=== PATIENT | female | born 1950 | race Caucasian/White ===

== ENCOUNTER 2020-03-22 17:47 | Outpatient (CLI) | payer MEDICARE, SELFPAY ==
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
--- NOTE | ~2020-03-22 | MR_ITS ---
EXAMINATION: MR cervical spine wo con DATE: 03/22/2020 18:34 INDICATION: Cervical radiculopathy. TECHNIQUE: Magnetic resonance imaging (MRI) of the cervical spine was performed without intravenous c ontrast. Sequences included sagittal T2-weighted FSE, sagittal STIR FSE, sagittal T1-weighted FSE, ax ial MERGE, and axial T2-weighted FSE. COMPARISON: Cervical spine radiographs 04/14/2020, chest CT 05/09/2012 FINDINGS: There is 3 degrees dextrocurvature of cervical spine. There is kyphosis of cervical spine. There is 2 mm anterolisthesis of C3 on C4 and C4 on C5. Vertebral body heights are normal. There is m ildly decreased disc height at C4-C5 and moderately decreased disc height at C5-C6 and C6-C7. The spi nal cord signal intensity is normal. The following disc levels are specifically discussed: C2-C3: The disc does not extend beyond the endplate margin. There is mild bilateral uncovertebral harsh nt osteoarthritis. There is severe right and moderate left facet joint osteoarthritis. There is mild right neural foraminal stenosis. There is no central canal stenosis. C3-C4: The disc does not extend beyond the endplate margin. There is mild right and moderate left unc overtebral joint osteoarthritis. There is moderate right and severe left facet joint osteoarthritis. There is mild right and moderate left neural foraminal stenosis. There is mild central canal stenosis . C4-C5: The disc does not extend beyond the endplate margin. There is mild bilateral uncovertebral harsh nt osteoarthritis. There is moderate bilateral facet joint osteoarthritis. There is no neural foramin al stenosis. There is mild central canal stenosis. C5-C6: The disc is bulging. There is severe bilateral uncovertebral joint osteoarthritis. There is mo derate bilateral facet joint osteoarthritis. There is mild bilateral neural foraminal stenosis. There is mild central canal stenosis. C6-C7: The disc is bulging. There is moderate right and severe left uncovertebral joint osteoarthriti s. There is mild bilateral facet joint osteoarthritis. There is mild bilateral neural foraminal steno sis. There is mild central canal stenosis. C7-T1: The disc does not extend beyond the endplate margin. There is no uncovertebral joint osteoarth ritis. There is moderate right and severe left facet joint osteoarthritis. There is mild left neural foraminal stenosis. There is no central canal stenosis. IMPRESSION: 1. Moderate cervical spondylosis. Reviewed, dictated and finalized at location A.
== END 2020-03-22 17:48 | disposition home or self-care (01) ==
LOC: ANHIMG 17:57
PROVIDERS: PCP Physician Assistant; Visit Provider Nurse Practitioner Adult Health
DX: M47.22 Other spondylosis with radiculopathy, cervical region (principal)
CPT/HCPCS: 72052; 72141

== ENCOUNTER → 2021-03-26 09:16 | Outpatient (CLI) | payer MEDICARE, SELFPAY ==
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
--- NOTE | ~2021-03-26 | MR_ITS ---
EXAMINATION: MR cervical spine wo con DATE: 03/26/2021 10:01 INDICATION: Cervical radiculopathy. TECHNIQUE: Magnetic resonance imaging (MRI) of the cervical spine was performed without intravenous c ontrast. Sequences included sagittal T2-weighted FSE, sagittal STIR FSE, sagittal T1-weighted FSE, ax ial MERGE, and axial T2-weighted FSE. COMPARISON: Cervical spine MRI 03/22/2020 FINDINGS: There is kyphosis of cervical spine. There is 2 mm anterolisthesis of C3 on C4 and C4 on C5 . Vertebral body heights are normal. There are hemangiomas in T2 and T3 vertebral bodies. There is mo derately decreased disc height at C5-C6 and mildly decreased disc height at C6-C7. The spinal cord si gnal intensity is normal. The following disc levels are specifically discussed: C2-C3: The disc does not extend beyond the endplate margin. There is no uncovertebral joint osteoarth ritis. There is severe bilateral facet joint osteoarthritis. There is mild bilateral neural foraminal stenosis. There is no central canal stenosis. C3-C4: The disc does not extend beyond the endplate margin. There is mild right and moderate left unc overtebral joint osteoarthritis. There is severe bilateral facet joint osteoarthritis. There is mild right and moderate left neural foraminal stenosis. There is no central canal stenosis. C4-C5: The disc does not extend beyond the endplate margin. There is mild bilateral uncovertebral harsh nt osteoarthritis. There is severe bilateral facet joint osteoarthritis. There is mild bilateral neur al foraminal stenosis. There is no central canal stenosis. C5-C6: The disc is bulging. There is severe bilateral uncovertebral joint osteoarthritis. There is mo derate bilateral facet joint osteoarthritis. There is mild bilateral neural foraminal stenosis. There is mild central canal stenosis with ventral indentation of the spinal cord. C6-C7: The disc is bulging. There is severe bilateral uncovertebral joint osteoarthritis. There is se adelaide bilateral facet joint osteoarthritis. There is mild left neural foraminal stenosis. There is mil d central canal stenosis. C7-T1: The disc does not extend beyond the endplate margin. There is no uncovertebral joint osteoarth ritis. There is moderate bilateral facet joint osteoarthritis. There is mild left neural foraminal st enosis. There is no central canal stenosis. IMPRESSION: 1. Moderate cervical spondylosis, stable from 03/22/2020. Reviewed, dictated and finalized at location A.
== END ==
PROVIDERS: Visit Provider Nurse Practitioner Adult Health
DX: M47.23 Other spondylosis with radiculopathy, cervicothoracic region (principal); M48.03 Spinal stenosis, cervicothoracic region; M19.011 Primary osteoarthritis, right shoulder
CPT/HCPCS: 72141; 73030

== ENCOUNTER 2021-05-08 15:41 | Outpatient (CLI) | payer MEDICARE, SELFPAY ==
--- NOTE | ~2021-05-08 | CT_ITS ---
EXAMINATION: CT abdomen pelvis w con EXAM DATE: 05/08/2021 16:28 INDICATION: Persistent right flank pain and abdominal pain. Reportedly negative CT in the emergency r oom on 05/02/2021. TECHNIQUE: Spiral CT of the abdomen and pelvis was performed following intravenous injection of 100 m L Omnipaque 350. Axial, coronal and sagittal images of the abdomen and pelvis were reviewed. The do se-length product (DLP) for this examination was 1264.41 mGy-cm. The exposure was tailored according to patient size (auto mA exposure control), and iterative reconstruction (ASIR) was used as addition al dose reduction technique. There is no prior study for comparison (recent CT must have been at out side facility). FINDINGS: The liver, spleen, adrenal glands and pancreas are unremarkable. Gallbladder is unremarka ble. No biliary obstruction. Portal and splenic veins are patent. Kidneys enhance symmetrically. There is no hydronephrosis. The uterus is not identified and has likely been surgically resected. T here is small sliding gastroesophageal hiatal hernia. The bladder is unremarkable. There is no retr operitoneal or pelvic lymphadenopathy. There is mild scattered arteriosclerotic disease. The appendix is not positively visualized. There is no pericecal inflammatory change to suggest appe ndicitis. There is mild sigmoid colonic diverticulosis. There is no adjacent inflammatory change to suggest diverticulitis. The stomach and small bowel are unremarkable. There is expected amount of colonic stool. No free intraperitoneal gas. The heart is normal in size. There are no pericardia l or pleural effusions. The lung bases are unremarkable. There are no osteoblastic or osteolytic le sions identified. IMPRESSION: 1. No acute intra-abdominal findings. Reviewed, dictated and finalized at location A.
[2021-05-08 16:19] LABS: Estimated Glomerular Filt Rate > 60
== END 2021-05-08 15:42 | disposition home or self-care (01) ==
LOC: ANHIMG 15:44
PROVIDERS: PCP Family Medicine; Visit Provider Family Medicine
DX: R10.9 Unspecified abdominal pain (principal)
CPT/HCPCS: 74177; Q9967

== ENCOUNTER 2021-05-17 07:34 | Outpatient (CLI) | payer MEDICARE, SELFPAY ==
--- NOTE | ~2021-05-17 | NM_ITS ---
EXAMINATION: NM hepatobiliary w pharm DATE: 05/17/2021 10:10 INDICATION: Right upper quadrant abdominal pain. COMPARISON: None. TECHNIQUE: 5 mCi Tc-99m mebrofenin (Choletec) was administered intravenously. Scintigraphic images o f the abdomen were obtained for one hour. 1.0 mcg sincalide (Kinevac) was administered by slow intrav enous infusion, and imaging was continued for 30 minutes. Gallbladder ejection fraction was calculate d by the technologist. FINDINGS: There is normal clearance of radiotracer from the blood pool. There is homogeneous tracer uptake by t he liver. Activity progresses to the gallbladder and bowel. The gallbladder ejection fraction (GBEF) is 97% (normal 10-90%, but most patient with gallbladder dysfunction have GBEF < 35% which does over lap with the normal range). IMPRESSION: 1. Biliary hyperkinesis with increased gallbladder ejection fraction of 97%. Reviewed, dictated and finalized at location A.
== END 2021-05-17 07:35 | disposition home or self-care (01) ==
PROVIDERS: PCP Family Medicine; Visit Provider Nurse Practitioner Family
DX: R10.11 Right upper quadrant pain (principal)
CPT/HCPCS: 78227; A9537; J2805

== ENCOUNTER 2023-02-12 09:21 | Outpatient (CLI) | payer MEDICARE, SELFPAY ==
--- NOTE | ~2023-02-12 | XR_ITS ---
EXAMINATION: XR lg joint inject/asp w image DATE: 02/12/2023 10:10 INDICATION: Right shoulder pain. TECHNIQUE: A time-out was performed to verify the patient's name, date of , and procedure to b e performed. The procedure including the risks, benefits, and alternatives was discussed with the pat ient. Risks discussed included bleeding and infection. The patient understood the risks and agreed to proceed. The skin overlying the rotator cuff interval of the right glenohumeral joint was prepped a nd draped in usual sterile fashion. Anesthetic was administered with 1% lidocaine subcutaneously. A 22 G needle was advanced under fluoroscopic guidance into the joint. Injection of a small amount of room air confirmed intra-articular position of the needle. Subsequently, injectate consisting of 2 m L 1% lidocaine and 1.5 mL of 10 mg/mL Kenalog for a total dosage of 15 mg Kenalog was instilled. The needle was removed and the entry site was cleaned and dressed. There were no immediate complications . Fluoroscopy exposure time was 2.1 minutes. The total number of images was 1. FINDINGS: Real-time fluoroscopy demonstrates the needle and injected gas in the right glenohumeral prince int. Patient's pain prior to procedure:5/10. Patient's pain following the procedure: 0/10. IMPRESSION: 1. Successful right glenohumeral joint injection of local anesthetic and steroid with decrease in the patient's presenting pain. Reviewed, dictated and finalized at location A. IMPRESSION: 1. Successful right glenohumeral joint injection of local anesthetic and steroi d with decrease in the patient's presenting pain.
== END 2023-02-12 09:22 | disposition home or self-care (01) ==
LOC: ANHIMG 09:25
PROVIDERS: PCP Family Medicine; Visit Provider Nurse Practitioner
DX: M25.511 Pain in right shoulder (principal); G89.29 Other chronic pain
CPT/HCPCS: 20610; 77002; J3301

== ENCOUNTER 2024-02-01 01:58 | Emergency (ER) | payer MEDICARE, SELFPAY ==
--- NOTE | ~2024-02-01 | CT_ITS ---
Non-contrast Head CT History: Trauma Technique: Axial non-contrast imaging of the brain was performed. Dose reduction technique was used on this scan by utilizing automated exposure control and iterative reconstruction technique. The dose -length product (DLP) was 756.67 mGy-cm. Findings: There is no evidence of intracranial hemorrhage, mass lesion, or acute infarct. Brain par enchyma appears normal. The ventricles and subarachnoid spaces are normal in size. The calvarium ap pears normal. There is right maxillary sinus disease. The remaining visualized paranasal sinuses and mastoid air cells are clear. Impression: No intracranial abnormality seen. Right maxillary sinus disease. Reviewed, dictated and finalized at location . Impression: No intracranial abnormality seen. Right maxillary sinus disease.
--- NOTE | ~2024-02-01 | CT_ITS ---
Noncontrast CT scan of the cervical spine Technique: Multiple contiguous axial [address] images of the cervical spine were obtained and rec onstructed in 2D sagittal and coronal planes on the acquisition scanner. Dose reduction technique was used on this scan by utilizing automated exposure control, adjustment of the mA and/or kV according to patient size. The dose-length product (DLP) was 371.46 mGy-cm. Clinical History: Pain Findings: No acute fracture. There is reversal of the normal cervical lordosis. There is 3 mm anterol isthesis of C3 over C4. There is 3 mm anterolisthesis of C4 over C5. There is advanced degenerative d isc narrowing at C5-C6 and C6-C7. There is severe degenerative change at the articulation of the odon toid process and the anterior arch of C1. There is scattered facet joint degenerative changes. There is left neural foraminal narrowing at C3-C4. No prevertebral soft tissue swelling. Impression: No fracture. 3 mm anterolisthesis of C3 over C4, and of C4 over C5. Degenerative spondylitic change, as above. Reviewed, dictated and finalized at location M. Impression: No fracture. 3 mm anterolisthesis of C3 over C4, and of C4 over C5. Degenerative spondylitic change, as above.
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
--- NOTE | ~2024-02-01 | XR_ITS ---
Right wrist Technique: PA, oblique, lateral, and ulnar deviation views were obtained. Clinical History: Pain Findings: There is a transverse fracture the distal radius, with mild displacement. No definite intra -articular extension. There is a mildly displaced acute fracture of the ulnar styloid process. Joint spaces are preserved. Soft tissues are unremarkable. Impression: Acute transverse fractures of the distal radius and ulnar styloid process, as detailed above. Reviewed, dictated and finalized at location M. Impression: Acute transverse fractures of the distal radius and ulnar styloid process, as d etailed above.
[2024-02-01 01:59] VITALS: BP 125/91; PULSE 80; RESP 21; TEMP 36.3; O2SAT 100
[2024-02-01] MEDS: MORPHINE SULFATE (*CRX) 4 MG/ML INJ IV PUSH (02:25)
[2024-02-01] MEDS: ONDANSETRON INJ 4 MG/2 ML VIAL IV PUSH (02:31)
[2024-02-01 02:37] LABS: Basophils Absolute Auto 0.1 K/mm3 (0.0-0.1); Basophils Percent Auto 0.9 % (0.2-1.2); Eosinophils Absolute Auto 0.1 K/mm3 (0-0.3); Hematocrit 38.6 % (37.0-47.0); Hemoglobin 13.1 g/dL (12.0-15.0); Immature Granulocyte Absolute 0.01 K/mm3 (0.00-0.031); Immature Granulocyte Percent A 0.1 % (0-0.5); Lymphocytes Absolute Auto 1.75 K/mm3 (0.9-3.2); Lymphocytes Percent Auto 24.9 % (18.3-44.2); Mean Corpuscular HGB Conc 33.9 g/dl (32-36); Mean Corpuscular Hemoglobin 28.9 pg (26-34); Mean Corpuscular Volume 85.2 fl (80-100); Mean Platelet Volume 10.1 fl (7.4-10.4); Monocytes Absolute Auto 0.4 K/mm3 (0.1-0.6); Neutrophils Absolute Auto 4.7 K/mm3 (1.3-6.7); Neutrophils Percent Auto 66.1 % (45.5-73.1); Platelet Count Result 193 k/mm3 (150-375); Red Blood Count 4.53 M/mm3 (4.2-5.4); Red Cell Distribution Width 13.1 % (11.5-14.5)
--- NOTE | 2024-02-01 02:37 | ED.GENADULT ---
HPI - General Adult General Chief complaint: Fall Stated complaint: Fall tripped over dog Time Seen by Provider: 02/01/24 02:09 History of Present Illness HPI narrative: Patient 73-year-old female presents emergency department chief complaint of right wrist pain. Patient reports that she tripped over her dog fell struck her face and also has pain in her right wrist. The patient states that she has history of arthritis reports that she has pain with movement of the right wrist. Patient states that it hurts with any range of motion of the hand Related Data Allergies Allergy/AdvReac Type Severity Reaction Status Date / Time metformin Allergy Unknown Confusion, Verified 02/01/24 02:14 anxiety Review of Systems Review of Systems: A 10 system review of systems was completed on the patient and is negative except for what is stated in the HPI. Nursing and ancillary documentation was reviewed. [facility] Past Medical History Medical History Acute abdominal pain in right flank (~04/27/21) Allergies Arthritis of right shoulder region glenohumeral Asthma At moderate risk for fall (~12/2023) patient tripped over branch in yd December, Body mass index [BMI] 38.0-38.9, adult (07/19/19) Carpal tunnel syndrome on both sides mild carpal tunnel syndrome on EMG and nerve conduction study 04/09/2021 with no evidence of cervical radiculitis Chronic anxiety Chronic depression Chronic neck pain Chronic pain in right shoulder Chronic right-sided thoracic back pain Colon cancer screening patient reports Cologuard screening negative around 2019. Controlled diabetes mellitus with hyperglycemia Fasting glucose 266 with hemoglobin A1c 9.9 with urine microalbumin ratio of 12 on 01/14/2024. 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 GGT 20, AST 18, ALT 13 on 12/02/2021. AST 19, ALT 14 on 12/05/2022. AST 20, ALT 15 on 01/14/2024. GERD (gastroesophageal reflux disease) Hyperlipidemia Mild intermittent occasional asthma without complication Mixed hyperlipidemia total cholesterol 247, triglycerides 279, HDL 50, LDL 151 on 12/02/2021. Total cholesterol 162, triglycerides 148, HDL 56, LDL 81 on 12/05/2022. Cholesterol 183, HDL 48, triglycerides 253, LDL 99 with ratio 3.8 on 01/14/2024. Morbid obesity with BMI of 40.0-44.9, adult Nail fungus Obesity (BMI 30-39.9) RUQ abdominal pain Screening for diabetic retinopathy no diabetic retinopathy on dilated eye exam 11/26/2021.No retinopathy or macular degeneration on 01/07/2023. Type 2 diabetes mellitus without complication, without long-term current use of insulin glucose 172 with hemoglobin A1c 7.4, microalbumin ratio of 8 on 12/02/2021 Glucose 147 with hemoglobin A1c 7.4 and urine microalbumin ratio of 6 on 12/05/2022. Glucose 220 with hemoglobin A1c 8.5 on 07/03/2023. Vitamin B12 deficiency anemia B12 low at 336 with goal greater than 400 with hemoglobin 13.4 on 12/02/2021. Normal at 445 with hemoglobin 13.2 on 12/05/2022. Slightly low at 395 hemoglobin 13.8 on 01/14/2024. Vitamin D deficiency, unspecified vitamin-D normal at 58 on 12/02/2021 Surgical History Surgical History History of carpal tunnel surgery of right wrist History of hysterectomy History of removal of skin mole History of tonsillectomy Family History Family History Grandparent Family history of tuberculosis, Onset Age: 42 Acute myocardial infarction, Onset Age: 79 Family history of malignant neoplasm, Onset Age: 90 Sibling Patient's brother is in good health Patient's brother is Mother Family history
[2024-02-01 02:44] LABS: Alanine Aminotransferase 19 U/L (6-35); Albumin Level 4.3 g/dL (3.5-5.1); Alkaline Phosphatase 90 U/L (38-126); Anion Gap 9 mmol/L (4-12); Aspartate Amino Transferase 26 U/L (14-36); Bilirubin,Total 0.8 mg/dL (0.2-1.3); Blood Urea Nitrogen 18 mg/dL (7-17); Calcium 9.8 mg/dL (8.4-10.2); Carbon Dioxide 25 mmol/L (22-30); Chloride 100 mmol/L (98-107); Estimated CRCL calculation 61 ml/min; Estimated Glomerular Filt Rate > 60; Glucose 287 mg/dL (65-110); Potassium 3.4 mmol/L (3.4-5.0); Sodium 134 mmol/L (137-145)
[2024-02-01 03:47] VITALS: BP 121/71; PULSE 70; RESP 17; O2SAT 94
[2024-02-01 05:37] VITALS: BP 127/74; PULSE 74; RESP 16; O2SAT 97
[2024-02-01 06:24] VITALS: BP 116/66; PULSE 79; RESP 16; O2SAT 98
== END 2024-02-01 06:27 | disposition home or self-care (01) ==
PROVIDERS: Emergency Provider Emergency Medicine; PCP Family Medicine
DX: S52.591A Other fractures of lower end of right radius, initial encounter for closed fracture (principal); S52.611A Displaced fracture of right ulna styloid process, initial encounter for closed fracture; S05.12XA Contusion of eyeball and orbital tissues, left eye, initial encounter; I10 Essential (primary) hypertension; J45.20 Mild intermittent asthma, uncomplicated; E11.42 Type 2 diabetes mellitus with diabetic polyneuropathy; E78.2 Mixed hyperlipidemia; E66.01 Morbid (severe) obesity due to excess calories; Z68.37 Body mass index [BMI] 37.0-37.9, adult; E55.9 Vitamin D deficiency, unspecified; D51.9 Vitamin B12 deficiency anemia, unspecified; K21.9 Gastro-esophageal reflux disease without esophagitis; M19.011 Primary osteoarthritis, right shoulder; Z90.710 Acquired absence of both cervix and uterus; M43.12 Spondylolisthesis, cervical region; J32.0 Chronic maxillary sinusitis; W01.0XXA Fall on same level from slipping, tripping and stumbling without subsequent striking against object, initial encounter
CPT/HCPCS: 29125; 36415; 70450; 70486; 72125; 73110; 80053; 85025; 96374; 96375; 99284; A4565; J2270; J2405

== ENCOUNTER 2024-02-02 12:30 | Outpatient (CLI) | payer MEDICARE, SELFPAY ==
[2024-02-02 13:01] LABS: Basophils Absolute Auto 0.1 K/mm3 (0.0-0.1); Basophils Percent Auto 1.1 % (0.2-1.2); Eosinophils Absolute Auto 0.1 K/mm3 (0-0.3); Eosinophils Percent Auto 2.1 % (0-4.4); Hematocrit 39.3 % (37.0-47.0); Hemoglobin 12.9 g/dL (12.0-15.0); Immature Granulocyte Absolute 0.01 K/mm3 (0.00-0.031); Immature Granulocyte Percent A 0.2 % (0-0.5); Lymphocytes Absolute Auto 1.44 K/mm3 (0.9-3.2); Mean Corpuscular HGB Conc 32.8 g/dl (32-36); Mean Corpuscular Hemoglobin 28.9 pg (26-34); Mean Corpuscular Volume 88.1 fl (80-100); Mean Platelet Volume 10.3 fl (7.4-10.4); Monocytes Absolute Auto 0.5 K/mm3 (0.1-0.6); Monocytes Percent Auto 7.9 % (2.6-8.5); Neutrophils Absolute Auto 4.4 K/mm3 (1.3-6.7); Neutrophils Percent Auto 66.7 % (45.5-73.1); Platelet Count Result 184 k/mm3 (150-375); Red Blood Count 4.46 M/mm3 (4.2-5.4); Red Cell Distribution Width 13.2 % (11.5-14.5); White Blood Count 6.6 K/mm3 (4.5-10.0)
--- NOTE | 2024-02-02 13:09 | ECG_ITS ---
Measurements Intervals [place] Rate: 85 P: 35 ND: 133 QRS: 41 QRSD: 84 T: 11 QT: 371 QTc: 413 Interpretive Statements SINUS RHYTHM NORMAL ECG SEE SCANNED COPY FOR SIGNATURE MTDD
[2024-02-02 13:18] LABS: Anion Gap 8 mmol/L (4-12); Blood Urea Nitrogen 17 mg/dL (7-17); Calcium 9.4 mg/dL (8.4-10.2); Carbon Dioxide 27 mmol/L (22-30); Chloride 103 mmol/L (98-107); Estimated Glomerular Filt Rate > 60; Glucose 171 mg/dL (65-110); Potassium 3.9 mmol/L (3.4-5.0); Sodium 138 mmol/L (137-145)
== END 2024-02-02 12:31 | disposition home or self-care (01) ==
PROVIDERS: PCP Family Medicine; Visit Provider Orthopaedic Surgery
DX: I10 Essential (primary) hypertension (principal); E11.9 Type 2 diabetes mellitus without complications; S52.509A Unspecified fracture of the lower end of unspecified radius, initial encounter for closed fracture
CPT/HCPCS: 36415; 80048; 85025; 93005

== ENCOUNTER 2024-02-03 01:36 | Day surgery (SDC) | payer MEDICARE, SELFPAY ==
--- NOTE | 2024-02-01 09:53 | PC.NURSE ---
Report to the Outpatient Waiting Room, entrance under the green pavilion located off [facility], at time _1000 on date __02/03/24 . Planned Procedure Time: _1200 . Time changes happen often and if your time is changed the preop area will call you the afternoon before. - You and your visitor will be asked to self-screen and do not enter if you have any COVID symptoms. - A mask is optional within the hospital at this time. Patients may have clear liquids (water, carbonated beverages, clear teas, apple juice) until 3 hours prior to surgery ( 9:00 AM)with a maximum of 20 ounces. - No food from midnight until time of surgery - Infants may have breast milk until 4 hours before surgery, infant formula 6 hours prior to surgery. - Children will be allowed to drink immediately following surgery. If applicable, please bring a bottle or sippy cup to assist with drinking. Juice, water, soda, and popsicles are readily available. For infants on formula, please bring formula the day of surgery. Pacifiers are allowed. Take the following medications with a SIP of water the morning of surgery: ___SERTRALINE , INHALER IF NEEDED_,HYDROCODONE IF NEEDED FOR PAIN DO NOT STOP ANY OF YOUR OTHER PRESCRIPTION MEDICATIONS PRIOR TO SURGERY ?EXCEPT THE FOLLOWING Medications to discontinue per physician NONE Please no make-up, nail comoran, hairspray, perfume, deodorant, or body powder the day of surgery. No jewelry (including any body piercings) or valuables the day of surgery, leave them at home. Please take a shower or bath the night before, or the morning of, surgery with an antibacterial soap. Wear comfortable, loose fitting clothing. Children are encouraged to wear pajamas. - Jewelry must be removed prior to entering the operating room. Rings and piercings that are not removed may be cut off. - The hospital will not accept responsibility for valuables. - Please leave all valuables, including medications, at home the day of surgery. If you are going home after surgery, a licensed tower truck driver must drive you home. - NO public transportation without another adult if you receive anesthesia. - We recommend that an adult stay with you for 24 hours following discharge. - We also recommend that you do not drive, make important decision, drink alcoholic beverages, or take any drugs that were not prescribed by your health care provider for at least 24 hours after your discharge time. Follow any additional instructions given to you from your surgeon. If you or anyone in your household have experienced Covid symptoms in the past week, please notify your surgeon or the nurse liaison at the phone number below for possible testing. Telephone instructions given to _PATIENT and asked if any additional questions and then verbalized understanding. Patient advised to call surgeon office or pre surgery nurse liaison [phone] if any additional questions.
[2024-02-01 10:02] VITALS: BMI 37.8
[2024-02-03] VITALS (8 sets, daily range): BP systolic 96–121; BP diastolic 50–73; PULSE 76–86; RESP 10–16; TEMP 36.3–36.4; O2SAT 94–100
--- NOTE | ~2024-02-03 | XR_ITS ---
EXAMINATION: XR surgery orthopedic DATE: 02/03/2024 14:31 INDICATION: Distal right radius fracture. TECHNIQUE: 5 intraoperative fluoroscopic views of right wrist were obtained. I was not present. Fluor oscopy exposure time was 206 seconds. COMPARISON: Right wrist radiographs 02/02/2024 FINDINGS: There is a comminuted fractures of distal radius status post open reduction internal fixati on with volar plate and screws. The main distal fracture fragment demonstrates near-anatomic alignmen t. There is an avulsion fracture of the ulnar styloid. IMPRESSION: 1. Comminuted fracture of distal radius status post open reduction internal fixation. 2. Avulsion fracture of the ulnar styloid. Reviewed, dictated and finalized at location A. IMPRESSION: 1. Comminuted fracture of distal radius status post open reduction internal fix ation. 2. Avulsion fracture of the ulnar styloid.
--- NOTE | 2024-02-03 07:11 | WPDHPUPDATE1 ---
History and Physical Update Update Date/Time: 02/03/24 07:11 History and Physical has been reviewed, including an updated exam of the patient. There are NO changes in the patient's condition. Risks, benefits, and alternatives have been discussed and questions answered. Patient agrees to proceed with procedure.
[2024-02-03] MEDS: ACETAMINOPHEN 500 MG TABLET 1000 MG PO (10:15)
[2024-02-03] MEDS: CELECOXIB 200 MG CAPSULE PO (10:15)
[2024-02-03] MEDS: LACTATED RINGERS 1,000 ML 30 ML IV CONT ×2 (10:35→14:56)
[2024-02-03 10:42] LABS: Glucose Point of Care 203 mg/dl (65-105)
--- NOTE | 2024-02-03 11:44 | WPDANESEPPF ---
Anes - Initial Pre Proc Eval Procedure: Operation Date: 02/03/24 12:00 Proposed Procedures p Open Reduction Internal Fixation Right Wrist Fracture - Jame Mackay MD Date/Time: 02/03/24 11:44 Surgeon: Jame Mackay MD Pre Op Diagnosis: right wrist fracture Patient Data Age: 73 Gender: F Height: 1.55 m Weight: 92.1 kg Last Vital Signs Temp 36.3 C L 02/03/24 10:43 Pulse 86 02/03/24 10:43 Resp 16 02/03/24 10:43 BP 114/52 L 02/03/24 10:43 Pulse Ox 98 02/03/24 10:43 O2 Del Method Room Air 02/03/24 10:43 Allergies Allergy/AdvReac Type Severity Reaction Status Date / Time metformin Allergy Unknown Confusion, Verified 02/03/24 10:03 anxiety Home Medications Medication Instructions Recorded Confirmed Type albuterol sulfate 90 mcg/actuation 2 puff inhalation Q4H PRN 12/17/21 02/02/24 Rx aerosol inhaler (ProAir HFA) shortness of breath or wheezing #8.5 grams mometasone 0.1 % topical ointment 1 applic topical DAILY #15 grams 12/17/21 02/02/24 Rx atorvastatin 10 mg tablet 10 mg PO DAILY #90 tabs 06/22/23 02/03/24 Rx omeprazole 20 mg capsule,delayed 20 mg PO DAILY #90 caps 06/22/23 02/03/24 Rx release losartan 100 1 tablet PO DAILY #90 tabs 09/28/23 02/03/24 Rx mg-hydrochlorothiazide 12.5 mg tablet sertraline 100 mg tablet 100 mg PO DAILY #90 tabs 01/20/24 02/03/24 Rx blood sugar diagnostic (True #200 ea 01/27/24 02/02/24 Rx Metrix Glucose Test Strip) semaglutide 0.25 mg or 0.5 mg (2 0.25 mg (0.368 mL) subcut WEEKLY 01/27/24 02/03/24 Rx mg/3 mL) subcutaneous pen injector #3 mL (Ozempic) hydrocodone 5 mg-acetaminophen 325 1 tablet PO Q6H PRN pain 3 days 02/01/24 02/03/24 Rx mg tablet #12 tabs Laboratory Tests 02/03/24 10:41 POC Capillary Glucose 203 H mg/dl (65-105) Patient hx anesthesia problems: none Family hx anesthesia problems: none Results Review: All pre-operative results and documents have been reviewed as part of the pre-operative evaluation. [facility] Past Medical History Medical History Acute abdominal pain in right flank (~04/27/21) Allergies Arthritis of right shoulder region glenohumeral Asthma At moderate risk for fall (~12/2023) patient tripped over branch in yd December, Body mass index [BMI] 38.0-38.9, adult (07/19/19) Carpal tunnel syndrome on both sides mild carpal tunnel syndrome on EMG and nerve conduction study 04/09/2021 with no evidence of cervical radiculitis Chronic anxiety Chronic depression Chronic neck pain Chronic pain in right shoulder Chronic right-sided thoracic back pain Colon cancer screening patient reports Cologuard screening negative around 2019. Controlled diabetes mellitus with hyperglycemia Fasting glucose 266 with hemoglobin A1c 9.9 with urine microalbumin ratio of 12 on 01/14/2024. 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 GGT 20, AST 18, ALT 13 on 12/02/2021. AST 19, ALT 14 on 12/05/2022. AST 20, ALT 15 on 01/14/2024. GERD (gastroesophageal reflux disease) Hyperlipidemia Mild intermittent occasional asthma without complication Mixed hyperlipidemia total cholesterol 247, triglycerides 279, HDL 50, LDL 151 on 12/02/2021. Total cholesterol 162, triglycerides 148, HDL 56, LDL 81 on 12/05/2022. Cholesterol 183, HDL 48, triglycerides 253, LDL 99 with ratio 3.8 on 01/14/2024. Morbid obesity with BMI of 40.0-44.9, adult Nail fungus Obesity (BMI 30-39.9) RUQ abdominal pain Screening for diabetic retinopathy no diabetic retinopathy on dilated eye exam 11/26/2021.No retinopathy or macular degeneration on 01/07/2023. Type 2 diabetes mellitus without complication, without long-term current use of insulin glucose 172 with hemoglobin A1c 7.4, mi
[2024-02-03] MEDS: ceFAZolin 2 GM/D5W 50 ML 2 GM/50 ML BAG IVPB (13:02)
[2024-02-03] MEDS: BUPivacaine HCL 0.5% 10 ML AMP INFILTRATE (13:41)
--- NOTE | 2024-02-03 14:56 | W.PM.PROC2 ---
Procedure Note - Detailed Date of Procedure 02/03/24 Pre-op Diagnosis right distal radius fracture Post-op Diagnosis Same Procedure Performed ORIF RIGHT DISTAL RADIUS FRACTURE Surgeon Jame Mackay MD Anesthesia General Description of Procedure THE RIGHT UPPER EXTREMITY WAS PREPPED AND DRAPED IN THE STERILE FASHION. A STANDARD HENRYS APPROACH WAS USED TO THE VOLAR WRIST. DISSECTION THROUGH THE SKIN AND SUBCUTANEOUS TISSUE WAS PREFORMED. THE FCR TENDON WAS IDENTIFIED. THE RADIAL ARTERY WAS IDENTIFIED AND RETRACTED. THE THE FLEXOR POLLICIS AND THE COMMON FLEXOR TENDONS WERE IDENTIFIED AND RETRACTED. THE PRONATOR QUADRATUS WAS IDENTIFIED AND INCISED EXPOSING THE FRACTURE. IT WAS HIGHLY COMMINUTED.THE FRACTURE WAS REDUCED. NEXT A BIOMET DISTAL RADIUS LOCKING PLATE WAS PLACED BRIDGING THE FRACTURE FRAGMENTS. SCREWS WERE PLACED DISTALLY AND PROXIMALLY. THE DISTAL SCREWS WERE IMAGED AND FOUND TO BE EXTRA ARTICULAR. C ARM IMAGES WERE PREFORMED AND HARDWARE AND FRACTURE FRAGMENTS WERE IN GOOD POSITION. THE TOURNIQUET WAS DEFLATED AND THE BLEEDERS WERE CAUTERIZED. THE FASCIA AND SUB CUTANEOUS LAYERS WERE APPROXIMATED WITH 3-0 VICRYL. THE SKIN WAS APPROXIMATED WITH LANDON. STERILE DRESSING AND SPLINT WAS APPLIED. PATIENT WAS EXTUBATED. Estimated Blood Loss 20 Complications No immediate complications Condition Stable Disposition PACU
[2024-02-03] MEDS: fentaNYL CITRATE INJ (*CRX) 100 MCG/2 ML VIAL 25 MCG IV PUSH ×6 (15:03→15:35)
[2024-02-03] MEDS: ONDANSETRON INJ 4 MG/2 ML VIAL IV PUSH (15:30)
[2024-02-03] MEDS: oxyCODONE HCL (*CRX) 5 MG TAB IR PO (15:57)
== END 2024-02-03 16:35 | disposition home or self-care (01) ==
PROVIDERS: PCP Family Medicine; Visit Provider Orthopaedic Surgery
PROC: (CPT 25575; principal; 2024-02-03 12:00)
DX: S52.531A Colles' fracture of right radius, initial encounter for closed fracture (principal); W01.0XXA Fall on same level from slipping, tripping and stumbling without subsequent striking against object, initial encounter; J45.20 Mild intermittent asthma, uncomplicated; E11.42 Type 2 diabetes mellitus with diabetic polyneuropathy; I10 Essential (primary) hypertension; K76.0 Fatty (change of) liver, not elsewhere classified; K21.9 Gastro-esophageal reflux disease without esophagitis; D51.3 Other dietary vitamin B12 deficiency anemia; E78.2 Mixed hyperlipidemia; E55.9 Vitamin D deficiency, unspecified; F41.9 Anxiety disorder, unspecified; F32.A Depression, unspecified; Z87.891 Personal history of nicotine dependence; E66.9 Obesity, unspecified; Z68.38 Body mass index [BMI] 38.0-38.9, adult; Z79.51 Long term (current) use of inhaled steroids; Z79.85 Long-term (current) use of injectable non-insulin antidiabetic drugs
CPT/HCPCS: 25607; 82948; 99199; A9270; C1713; J0690; J1100; J2405; J2704; J3010; J7120

== ENCOUNTER 2025-06-07 09:43 | Outpatient (CLI) | payer MEDICARE, SELFPAY ==
--- OUTSIDE RECORDS SUMMARY | 2025-06-07 09:50 | XMS_ITS ---
Author Organization [facility] Address [address] [facility] [place] [address] Care Team Providers Care Golf Coach Name Role Phone VICKI IRBY MD Primary Care Provider Freddy Forte Unavailable [phone] REASON FOR VISIT FOLLOW UP Encounters Encounter Location Date Provider Diagnosis [facility] [address] [facility] [place] [address] 05/02/2025 Freddy Akers PLAN OF TREATMENT No Information
--- OUTSIDE RECORDS SUMMARY | 2025-06-07 09:50 | XMS_ITS | Patient Health Record ---
Author Organization [facility] Address [address] [place] [address] [place] [address] Care Team Providers Care Retail Sales Merchandiser Development Name Role Phone VICKI IRBY MD Primary Care Provider Freddy Forte Unavailable [phone] ALLERGIES Allergen (clinical drug ingredient) Drug/Non Drug Allergy documented on EMR Reaction Allergy Type Onset Date Status lisinopril Lisinopril cough Drug Allergy Activ e metformin Metformin confusion Drug Allergy Active REASON FOR REFERRAL No Information MEDICATIONS Medication SIG (Take, Route, Frequency, Duration) [...] MG/DOSE) 2 MG/3ML as directed Subcutaneous Active Albuterol Sulfate 108 (90 Base) MCG/ACT 1 puff as needed Inhalation every 4 hrs Active Medrol 4 MG as directed Orally Active Omeprazole 20 MG 1 capsule 30 minutes before morning meal Orally Once a day for 30 day(s) Active Atorvastatin Calcium 10 MG 1 tablet Oral ly Once a day for 30 day(s) Active Advil 200 MG 4 capsules Orally qhs Active SITagliptin Phosphate 100 MG 1 tablet Orally Once a day for 30 day(s) Active SOCIAL HISTORY Tobacco Use: Social History Observation Description Date Details (start date - stop date) Former Smoker NA - NA Sex Assigned At : Social History Observation Description Sex Assigned At Unknown Tobacco Use/Smoking Question Answer Notes Are you a former smoker How long has it been since you last smoked? > 10 years Alcohol Screen (Audit-C) Question Answer Notes Did you have a drink containing alcohol in the p ast year? No Points 0 Interpretation Negative Section Notes: The patient is . She denies tobacco, alcohol, or illicit drug abuse. 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 The patient is . She denies tobacco, alcohol, or illicit drug abuse. 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 The patient is . She denies tobacco, alcohol, or illicit drug abuse. 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 The patient is . She denies tobacco, alcohol, or illicit drug abuse. 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 The patient is . She denies tobacco, alcohol, or illicit drug abuse. 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 The patient is . She denies tobacco, alcohol, or illicit drug abuse. 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 The patient is . She denies tobacco, alcohol, or illicit drug abuse. 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 The patient is . She denies tobacco, alcohol, or illicit drug abuse. 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 The patient is . She denies tobacco, alcohol, or illicit drug abuse. 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 The patient is . She denies tobacco, alcohol, or illicit drug abuse. 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 The patient is . She denies tobacco, alcohol, or illicit drug abuse. 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 The patient is . She denies tobacco, alcohol, or illicit drug abuse. 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 The patient is . She denies tobacco, alcohol, or illicit drug abuse. 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 The patient is . She denies tobacco, alcohol, or illicit drug abuse. 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 The patient is . She denies tobacco, alcohol, or illicit drug abuse. 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 The patient is . She denies tobacco, alcohol, or illicit drug abuse. 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 The patient is . She is a former smoker. She denies tobacco, alcohol, or illicit drug abuse. 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 PROBLEMS Problem Type ICD Code Onset Dates Problem Status W/U Status Risk SNOMED Code Notes Problem Chronic pain syndrome (G89.4) Active confirmed Chronic bella n syndrome (160602367) Problem Primary osteoarthritis, right shoulder (M19.011) Active confirmed Problem Pain in right shoulder (M25.511) Active confirmed Pain of r ight shoulder region (finding) (6713927270) Problem Spondylosis without myelopathy or radiculopathy, cervical region (M47.812) Active confirmed Cervical spondylosis without myelopathy (619873895) Problem Spondylosis without myelopathy or radiculopathy, cervicothoracic region (M47.813) Active confirmed Cervical spondylosis without myelopathy (830247928) Problem Spinal stenosis, cervical region (M48.02) Active confirmed Problem Radiculopathy, cervical region (M54.12) Active confirmed Cervical radiculopathy (57455157) Problem Radiculopathy, cervicothoracic region (M54.13) Active confirmed Cervical radiculopathy (62338674) Problem Osseous stenosis of neural canal of cervical region (M99.31) Active confirmed Spinal stenosis in cervical region (44472901) Problem care home (current) use of anticoagulants (Z79.01) Active confirmed Long-term current use of anticoagulant (708921092) Problem Degenerative cervical spinal stenosis (M48.02) Active confirmed Degenerati ve cervical spinal stenosis (121627112) VITAL SIGNS Heart Rate 84 /min 08/02/2024 Respiratory Rate 16 /min 08/02/2024 Blood pressure diastolic 82 mm Hg 08/02/2024 Height 61 in 08/02/2024 Blood pressure systolic 118 mm Hg 08/02/2024 Weight 213 lbs 08/02/2024 BMI 40.24 kg/m2 08/02/2024 Encounters Encounter Location Date Provider Diagnosis [facility] [address] [place] [address] 08/02/2024 Freddy Akers Primary osteoarthritis, right shoulder M19.011 [facility] [address] [place] [address] 08/19/2024 Freddy Mahanick Radiculopathy, cervical region M54.12 ; Primary osteoarthritis, right shoulder M19.011 ; Spondylosis without myelopathy or radiculopathy, cervical region M47.812 ; Radiculopathy, cervicothoracic region M54.13 ; Spinal stenosis, cervical region M48.02 ; Osseous stenosis of neural canal of cervical region M99.31 ; Pain in right shoulder M25.511 ; Chronic pain syndrome G89.4 ; care home (current) use of anticoagulants Z79.01 and ad terminal makeup operator (current) use of non-steroidal anti-inflammatories (NSAID) Z79.1 [facility] [address] [place] [address] 05/02/2025 Freddy Akers ASSESSMENTS Encounter Date Diagnosis Assessment Notes Treatment Notes Treatment Clinical Notes Section Notes 08/02/2024 Primary osteoarthritis, right shoulder (ICD-10 - M19.011) 08/19/2024 Radiculopathy, cervical region (ICD-10 - M54.12) [...] Chronic pain syndrome (ICD-10 - G89.4) 08/19/2024 ad terminal makeup operator (current) use of anticoagulants (ICD-10 - Z79.01) 08/19/2024 ad terminal makeup operator (current) use of non-steroidal anti-inflammatories (NSAID) (ICD-10 - Z79.1) PLAN OF TREATMENT No Information Insurance Providers Payer Name Payer Address Payer Phone Subscriber Number Group Number Insured Name Patient Relationship to Insured Coverage Start Date Coverage End Date Medicare [place] [address] [address] [place] [address] [id number] MARY ANN BLUNTCY Self - patient is the insured A[employer] MEDICARE ADVANTAGE [address] [place] [address] [id number] WICHO BLUNT Self - patient is the insured MEDICAL (GENERAL) HISTORY Medical History History ICD Code Abdominal Pain Allergies Arthritis R Shoulder Asthma Chronic Anxiety Carpal Tunnel Syndrome Depression Diabetes Type II Diabetic Peripheral Neuropathy Eczema Hypertension GERD Hyperlipidemia Morbid Obesity Vitamin B & D Deficiency Fatty Liver Surgical History Surgery Date(Month/Year) Carpal Tunnel Surgery (Right Wrist) Hysterectomy Skin Mole Removal Tonsillectomy Hospitalization History Reason Date(Month/Year) SEE SURGERIES ABOVE
--- OUTSIDE RECORDS SUMMARY | 2025-06-07 09:50 | XMS_ITS ---
Author Organization [facility] Address [address] [place] [address] [place] [address] Care Team Providers Care Executive Steward Name Role Phone MAHAMED LEMON, VICKI Primary Care Provider Freddy Forte Unavailable [phone] ALLERGIES Allergen (clinical drug ingredient) Drug/Non Drug [...] Date Provider Diagnosis [facility] [address] [facility] [place] [address] 08/02/2024 Freddy Akers Primary osteoarthritis, right shoulder [...] discharged home in good condition with a explosives truck driver. X-ray time: 5 seconds Progress Notes [...] and Follow-up: Follow-up Plan documen amari:: Yes [facility] Quality 2020: MIPS Documented:: Compliant
--- OUTSIDE RECORDS SUMMARY | 2025-06-07 09:51 | XMS_ITS | Continuity of Care Document ---
Author Organization [facility] Address [id number] [place] [address] [place] [address] Phone Care Team Providers Care Route Specialist Name Role Phone Nicko Salazar DO Unavailable Unavailable Advance Directives Directive Yes / No Effective Date File Name No Information Encounters Encounter Description Practice Location Reason(s) For Visit Diagnoses Date Provider Providers Copied on Encounter [facility], [address], [place], [place], [id number], [place] tel:[phone] [facility] [place] No Information Marie Webb. [address] [facility], [place], [address], [place]. tel:[phone] Family History Family Member Type Diagnosis Age [...]
--- OUTSIDE RECORDS SUMMARY | 2025-06-07 09:51 | XMS_ITS | Clinical Summary ---
Author Organization [facility] Address [address] [facility] [address] [place] [phone] Phone Care Team Providers Care Engine Generator Assembler Name Role Phone Sean Arvizu MD Unavailable Ari Wise MD Primary Care Provider [phone] Allergies Active Allergy Reactions Criticality Noted Date Comments Lisinopril Cough Low 01/07/2019 Metformin Agitation Low 05/02/2021 Medications ibuprofen (ADVIL) 200 mg tab/cap Take by mouth nightly. Active mometasone (ELOCON) 0.1 % ointment Apply topically to outer ear daily x 10 days then prn. 15 g 3 9 Active blood-glucose meter misc Check blood glucose once daily 1 each 9 Active omeprazole (PriLOSEC) 20 mg capsule Take 1 capsule (20 mg total) by mouth daily 90 capsule 3 9 Active garlic 1,000 mg capsule Take by mouth Active turmeric root extract 500 mg capsule Take by mouth Active cholecalciferol (VITAMIN D3) 5,000 unit tablet Active sertraline (ZOLOFT) 100 mg tablet Take 1 tablet (100 mg total) by mouth daily 90 tablet 1 9 Active blood glucose diagnostic strip Test blood glucose once daily fasting 100 each 3 9 Active lancing device misc Check blood glucose once daily 1 each 9 Active losartan (COZAAR) 100 mg tablet Take 1 tablet (100 mg total) by mouth daily 90 tablet 1 9 Active Active Problems Problem Noted Date Diagnosed Date Papule 04/18/2019 Assessment & Plan (04/18/2019 10:06 AM CDT): Small papule on left uatsdin. Recommended warm compresses b.i.d. If not resolving please return to clinic. Also return to clinic if erythema, increased tenderness or fevers. Obesity (BMI 30-39.9) 02/14/2019 Assessment & Plan (04/18/2019 10:04 AM CDT): Obesity is improving with lifestyle modifications. Discussed the patient's BMI. The BMI is above average; BMI management plan is completed. General weight loss/lifestyle modification strategies discussed (elicit support from others; identify saboteurs; non-food rewards, etc). Behavioral treatment: stress management. Diet interventions: moderate (500 kCal/d) deficit diet. Informal exercise measures discussed, e.g. taking stairs instead of elevator. Regular aerobic exercise program discussed. Assessment & Plan (02/16/2019 7:37 PM CDT): Obesity is improving with treatment. Discussed the patient's BMI. The BMI is above average; BMI management plan is completed. Behavioral treatment: stress management. Diet interventions: moderate (500 kCal/d) deficit diet and Avoid concentrated sweets, work on portion control. Informal exercise measures discussed, e.g. taking stairs instead of elevator. Regular aerobic exercise program discussed. Chronic neck pain 01/07/2019 Assessment & Plan (04/18/2019 10:05 AM CDT): Discussed with patient that now that her A1c is better controlled she may be better candidate for surgery. She declines today. I also offered pain management referral today for other modalities to control her pain, she declined. I also discussed adding gabapentin at night to help with her nightly neuropathy type pain which she also declined. Discussed warning signs and symptoms of when to return to clinic sooner including upper extremity weakness, severe numbness and tingling or worsening pain. Assessment & Plan (01/07/2019 8:34 AM CDT): Pt will be referred to orthopedic for further evaluation/ imaging. Continue tylenol and ibuprofen PRN for pain. Recommended taking together at night for maximum analgesic effect. Choose to avoid sedating substances on BEERs criteria list for elderly. Right hand weakness 01/07/2019 Assessment & Plan (01/07/2019 8:31 AM CDT): Intermittent right hand weakness associated with neck pain. Patient will be referred to Orthopedic surgery today for further evaluation. Cranial nerves 2-12 intact See pt instructions. Screen for colon cancer 01/07/2019 Assessment & Plan (01/07/2019 8:33 AM CDT): Patient denies family history of colon cancer. Denies constipation, diarrhea, hematochezia or change in bowel pattern. Reviewed screening for colon cancer with colonoscopy versus Cologuard. Discussed that colonoscopy is the gold standard, patient declines today. Given no family history and asymptomatic will screen with colo card. If patient's Cologuard comes back positive they will need a colonoscopy. Vitamin D insufficiency 01/07/2019 Overview (01/07/2019): 01/07/2019 17 high-dose vitamin-D for 8 weeks Assessment & Plan (02/16/2019 7:37 PM CDT): After completion of high-dose vitamin-D start vitamin D3 2000 units once daily for maintenance. Assessment & Plan (01/07/2019 8:33 AM CDT): Will check vitamin D level today. Type 2 diabetes mellitus wit h circulatory disorder, without long-term current use of insulin 01/07/2019 Overview (04/18/2019): 01/07/2019 A1C 9.3 start metformin and lifestyle changes. 04/18/2019 6.2 Assessment & Plan (04/18/2019 10:03 AM CDT): Diabetes is improving with lifestyle modifications. Continue current treatment regimen. Reminded to bring in blood sugar diary at next visit. Dietary recommendations for ADA diet. Regular aerobic exercise. Discussed sick day management. Discussed foot care. ARIE requested for diabetic eye exam in 2017. Diabetes will be reassessed in 3 months. Assessment & Plan (02/16/2019 7:36 PM CDT): Diabetes is improving with treatment. Continue current treatment regimen. Reminded to bring in blood sugar diary at next visit. Dietary recommendations for ADA diet. Regular aerobic exercise. Discussed ways to avoid symptomatic hypoglycemia. Discussed sick day management. Discussed foot care. Reminded to get yearly retinal exam. Continue metformin 1000 mg b.i.d. And lifestyle modifications Diabetes will be reassessed Two months. Assessment & Plan (01/07/2019 8:30 AM CDT): Will check A1c today. Age-related cataract of both eyes 02/23/2018 Assessment & Plan (02/23/2018 10:47 AM CDT): Surgical release form completed. Will fax to surgeon Dry skin 02/23/2018 Assessment & Plan (02/23/2018 10:45 AM CDT): To bilateral ears-will try elocon cream to bilateral ears daily prn. Snoring 08/06/2017 Assessment & Plan (08/09/2017 11:18 AM CDT): Will arrange sleep study. Nocturnal headaches 08/06/2017 Assessment & Plan (08/09/2017 11:19 AM CDT): New onset. Will arrange MRI of brain and set up sleep study. Right shoulder pain 08/06/2017 Assessment & Plan (01/07/2019 8:33 AM CDT): MRI completed 08/12/2017. Mild to moderate AC joint arthropathy with subcoracoid bursitis. Recommended further orthopedic evaluation. Tylenol and ibuprofen p.r.n. For pain. Assessment & Plan (08/09/2017 11:19 AM CDT): Arrange MRI of right shoulder. Using NSAIDs prn. Hypertension 03/11/2014 Overview (01/30/2017): HYPERTENSION NOS Assessment & Plan (04/18/2019 10:04 AM CDT): Hypertension is improving with treatment. Continue current treatment regimen. Dietary sodium restriction. Weight loss. Regular aerobic exercise. Medication changes per orders. Continue losartan 100 mg daily. Blood pressure will be reassessed in 3 months. Assessment & Plan (02/16/2019 7:38 PM CDT): Hypertension is improving with treatment. Continue current treatment regimen. Dietary sodium restriction. Weight loss. Regular aerobic exercise. Continue losartan 50 mg daily Blood pressure will be reassessed at the next regular appointment. Assessment & Plan (01/08/2019 1:04 PM CDT): Hypertension is improving with treatment. Continue current treatment regimen. Dietary sodium restriction. Weight loss. Continue losartan 50 mg daily Blood pressure will be reassessed at the next regular appointment. Assessment & Plan (02/23/2018 10:48 AM CDT): Hypertension is well controlled. . Continue current treatment regimen. Dietary sodium restriction. Weight loss. Blood pressure will be reassessed at the next regular appointment. Assessment & Plan (08/09/2017 11:15 AM CDT): Hypertension is fair control-possible prachi cough. Plant o stop lisinopril and start Losartan. . Weight loss. Regular aerobic exercise. Blood pressure will be reassessed in 2 weeks. Asthma 03/11/2014 Overview (01/30/2017): ASTHMA NOS Assessment & Plan (01/07/2019 8:29 AM CDT): Asthma is unchanged. The patient is experiencing no daytime asthma symptoms. She is experiencing no nighttime asthma symptoms. Discussed monitoring symptoms and use of quick-relief medications and contacting us early in the course of exacerbations. Warning signs of respiratory distress were reviewed with the patient. If symptoms worsen or fail to improve or patient is requiring albuterol inhaler more frequently she will return to clinic. Depression 03/11/2014 Overview (01/30/2017): DEPRESSIVE DISORDER NEC Assessment & Plan (04/18/2019 10:04 AM CDT): Psychological condition is worsening. Regular aerobic exercise. Medication changes per orders. Increase sertraline from 50 mg daily to 100 mg daily. Psychological condition will be reassessed in 3 months. Assessment & Plan (01/07/2019 8:35 AM CDT): Psychological condition is unchanged. Continue current treatment regimen. Regular aerobic exercise. Continue sertraline 50 mg daily Psychological condition will be reassessed at the next regular appointment. Assessment & Plan (08/09/2017 11:17 AM CDT): Psychological condition is currently more anxious a tthis time. Increase stress recently. . Plan to start Zoloft 50mg daily. Psychological condition will be reassessed in 4 weeks. Resolved Problems Problem Noted Date Diagnosed Date Resolved Date Hyperkalemia 01/07/2019 02/14/2019 Morbid obesity with body mas s index (BMI) of 40.0 to 44.9 in adult 02/23/2018 02/14/2019 Assessment & Plan (01/07/2019 8:30 AM CDT): Obesity is improving with lifestyle modifications. Discussed the patient's BMI. The BMI is above average; BMI management plan is completed. Behavioral treatment: stress management. Diet interventions: moderate (500 kCal/d) deficit diet. Informal exercise measures discussed, e.g. taking stairs instead of elevator. Regular aerobic exercise program discussed. Assessment & Plan (02/23/2018 10:50 AM CDT): As above. Cough 08/06/2017 02/23/2018 Assessment & Plan (08/09/2017 11:12 AM CDT): Possibly secondary to prachi inhibitor. Will stop lisinopril and start Losartan 50mg daily. Will recheck BP in one week. If need-will increase to 100mg daily. Immunizations Immunization Administration Dates Next Due Influenza, Unspecified 01/07/2019(Deferred: Yvette ent Refused) Pneumococcal Conjugate PCV 13 08/06/2017 Pneumococcal Polysaccharide PPV23 01/07/2019, ZOSTER LIVE 05/03/2013 Surgical History Surgery Date Site/Laterality Comments TUBAL LIGATION 10/26/1979 - 10/25/1980 CARPAL TUNNEL RELEASE 10/26/1989 - 10/25/1990 TONSILLECTOMY DILATION AND CURETTAGE OF UTERUS TOTAL ABDOMINAL HYSTERECTOMY 10/26/1980 - 10/25/1981 Medical History Medical History Date Comments Asthma Hypertension Depression 03/11/2014 DEPRESSIVE DISOR JUAN NEC Prediabetes 01/07/2019 Vitamin D insufficiency 01/07/2019 Smoking QUIT 19 YEARS AG O Morbid obesity with body mas s index (BMI) of 40.0 to 44.9 in adult (HCC) 02/23/2018 Diabetes mellitus (HCC) Family History Medical History Relation Name Comments Hypertension Brother 1 Hypertension Brother 2 Pulmonary embolism Father pulmonary embolism; Cause of : pulmonary embolism Hypertension Mother Lung cancer Mother Other Mother Alive and well; Breast cancer Neg Hx Colon cancer Neg Hx Diabetes Neg Hx Endometrial cancer Neg Hx Ovarian cancer Neg Hx Thyroid cancer Neg Hx Relation Name Status Comments Brother 1 Alive Brother 2 Alive Brother 3 Father (Age 51) Mother Social History Tobacco Use Types Packs/Day Years Used Date Smoking Tobacco: Former Smokeless Tobacco: Never Alcohol Use Standard Drinks/Week Comments No 0 (1 standard drink = 0.6 oz pur e alcohol) PHQ-2 Answer Date Recorded PHQ-2 Score 0 06/17/2019 Comments No Sex and Gender Information Value Date Recorded Sex Assigned at Not on file 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 Gender Identity Not on file Sexual Orientation Not on file 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 Not on file Not on file 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 Not on file Not on file Not on file Obstetrics History Para Term AB IAB SAB Ectopic Multiple Livin g Live Births 2 2 2 Date Outcome GA Total Labor Labor/2nd/3rd Weight Sex Type Anes PTL Mary Grace A1 A5 Name Clin Term Term Last Filed Vital Signs Vital Sign Reading Time Taken Comments Blood Pressure 138/75 05/02/2021 2:50 PM CDT Pulse 70 05/02/2021 3:15 PM CDT Temperature 36.9 C (98.4 F) 05/02/2021 9:36 AM CDT Respiratory Rate 16 05/02/2021 3:15 PM CDT Oxygen Saturation 97% 05/02/2021 3:15 PM CDT Inhaled Oxygen Concentration - - Weight 99.3 kg (219 lb) 05/02/2021 9:36 AM CDT Height 157.5 cm (5' 2) 05/02/2021 9:36 AM CDT Body Mass Index 40.06 05/02/2021 9:36 AM CDT Plan of Treatment Not on file Insurance MEDICARE [facility] Care Teams Engine Generator Assembler Relationship Specialty Start Date End Date Ari Wise MD [address] [address] PCP - General 05/02/21 [place] [id number] [address] Surgeon Orthopedic Surgery 02/23/19
--- OUTSIDE RECORDS SUMMARY | 2025-06-07 09:51 | XMS_ITS ---
Author Organization [facility] Address [address] [place] [address] Care Team Providers Care Paste Mixer Liquid Name Role Phone MAHAMED LEMON, VICKI Primary Care Provider Freddy Forte Unavailable [phone] ALLERGIES Allergen (clinical drug ingredient) Drug/Non Drug [...] Date Provider Diagnosis [facility] [address] [facility] [place] [address] 08/19/2024 Freddy Akers Radiculopathy, cervical region M54.12 ; Primary osteoarthritis, right shoulder M19.011 ; Spondylosis without myelopathy or radiculopathy, cervical region M47.812 ; Radiculopathy, cervicothoracic region M54.13 ; Spinal stenosis, cervical region M48.02 ; Osseous stenosis of neural canal of cervical region M99.31 ; Pain in right shoulder M25.511 ; Chronic pain syndrome G89.4 ; nursing home (current) use of anticoagulants Z79.01 and silverware assembler (current) use of non-steroidal anti-inflammatories (NSAID) Z79.1 [...] Chronic pain syndrome (ICD-10 - G89.4) 08/19/2024 silverware assembler (current) use of anticoagulants (ICD-10 - Z79.01) 08/19/2024 nursing home (current) use of non-steroidal anti-inflammatories (NSAID) (ICD-10 [...]
--- NOTE | 2025-06-07 11:15 | NEURO_ITS ---
Impression: # Complains of numbness of hands. ? # Bilateral ulnar neuropathy across the elbows. ? # No Carpal Tunnel Syndrome. ? # Needle/EMG exam mildly neurogenic in 1st DI. ? # Clinical correlation recommended. Nerve Conduction Studies ?Stim Site NR Peak (ms) P-T Amp (?V) Site1 Site2 Delta-P (ms) Dist (cm) Eddie (m/s) Left Median Anti Sensory (2-3nd Digit) Wrist ? 3.8 24.3 Wrist 2-3nd Digit 3.8 14.0 37 Wrist ? 3.8 36.2 Wrist 2-3nd Digit 3.8 14.0 37 Right Median Anti Sensory (2-3nd Digit) Wrist ? 3.7 14.4 Wrist 2-3nd Digit 3.7 14.0 38 Wrist ? 3.5 13.9 Wrist 2-3nd Digit 3.7 14.0 38 Left Radial Anti Sensory (Base 1st Digit) Wrist ? 2.0 26.7 Wrist Base 1st Digit 2.0 0.0 Right Radial Anti Sensory (Base 1st Digit) Wrist ? 2.3 15.9 Wrist Base 1st Digit 2.3 0.0 Left Ulnar Anti Sensory (5th Digit) Wrist ? 2.8 34.5 Wrist 5th Digit 2.8 14.0 50 Right Ulnar Anti Sensory (5th Digit) Wrist ? 2.1 51.0 Wrist 5th Digit 2.1 14.0 67 ?Stim Site NR Onset (ms) O-P Amp (mV) Site1 Site2 Delta-0 (ms) Dist (cm) Eddie (m/s) Left Median Motor (Abd Poll Brev) Wrist ? 3.6 4.8 Elbow Wrist 5.3 28.0 53 Elbow ? 8.9 5.6 Right Median Motor (Abd Poll Brev) Wrist ? 3.4 4.3 Elbow Wrist 5.2 26.0 50 Elbow ? 8.6 4.1 Left Ulnar Motor (Abd Dig Minimi) Wrist ? 2.4 4.3 A Elbow Wrist 5.8 27.0 47 A Elbow ? 8.2 3.3 B Elbow Wrist 3.4 20.0 59 B Elbow ? 5.8 4.5 Right Ulnar Motor (Abd Dig Minimi) Wrist ? 2.3 5.0 A Elbow Wrist 5.5 27.0 49 A Elbow ? 7.8 3.3 B Elbow Wrist 3.6 20.0 56 B Elbow ? 5.9 3.9 F Wave Studies ?NR F-Lat (ms) L-R F-Lat (ms) Left Median (Mrkrs) (Abd Poll Brev) ? 29.69 1.03 Right Median (Mrkrs) (Abd Poll Brev) ? 30.72 1.03 Left Ulnar (Mrkrs) (Abd Dig Min) ? 28.47 0.16 Right Ulnar (Mrkrs) (Abd Dig Min) ? 28.63 0.16 Electromyography ?Side Muscle Nerve Root Ins Act Fibs Amp Dur Recrt Comment Right 1stDorInt Ulnar C8-T1 Nml Nml Nml Nml +1 Right Ext Indicis Radial (Post Int) C7-8 Nml Nml Nml Nml Nml Right Ext Digitorum Radial (Post Int) C7-8 Nml Nml Nml Nml Nml Right BrachioRad Radial C5-6 Nml Nml Nml Nml Nml Right PronatorTeres Median C6-7 Nml Nml Nml Nml Nml Right Abd Poll Brev Median C8-T1 Nml Nml Nml Nml Nml Right ABD Dig Min Ulnar C8-T1 Nml Nml Nml Nml Nml Right FlexPolLong Median (Ant Int) C7-8 Nml Nml Nml Nml Nml Right Abd Poll Long Radial (Post Int) C7-8 Nml Nml Nml Nml Nml Left 1stDorInt Ulnar C8-T1 Nml Nml Nml Nml +1 Left Ext Indicis Radial (Post Int) C7-8 Nml Nml Nml Nml Nml Left Ext Digitorum Radial (Post Int) C7-8 Nml Nml Nml Nml Nml Left BrachioRad Radial C5-6 Nml Nml Nml Nml Nml Left PronatorTeres Median C6-7 Nml Nml Nml Nml Nml Left Abd Poll Brev Median C8-T1 Nml Nml Nml Nml Nml Left ABD Dig Min Ulnar C8-T1 Nml Nml Nml Nml Nml Left FlexPolLong Median (Ant Int) C7-8 Nml Nml Nml Nml Nml Left Abd Poll Long Radial (Post Int) C7-8 Nml Nml Nml Nml Nml
== END 2025-06-07 09:44 | disposition home or self-care (01) ==
LOC: ANHNEURO 09:45
PROVIDERS: PCP Family Medicine; Visit Provider Family Medicine
DX: S64.01XA Injury of ulnar nerve at wrist and hand level of right arm, initial encounter (principal); G56.00 Carpal tunnel syndrome, unspecified upper limb; X58.XXXA Exposure to other specified factors, initial encounter; M47.22 Other spondylosis with radiculopathy, cervical region
CPT/HCPCS: 95886; 95911

== ENCOUNTER 2025-06-20 15:09 | Outpatient (CLI) | payer MEDICARE, SELFPAY ==
--- OUTSIDE RECORDS SUMMARY | 2004-02-18 19:00 | XMS_ITS | Continuity of Care Document ---
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 [address] [facility], [place], [address], [place]. tel:[phone] Family History Family Member Type Diagnosis Age At Onset No Information Payers Payer name Insurance type Covered green party ID Authoriza tion(s) No Information Social History Type Description Quantity Date Captured Comments Sex Female Smoking Status No Information Chief Complaint And Reason For Visit No Information Reason For Referral Reason For Referral No Information History Of Present Illness Encounter Date Complaint History Of Prese nt Illness No Information Functional Status Date Functional Assessmen t No Information Instructions Date Instruction Additional Infor mation No Information Assessments Type Assessment Date No Information Patient Care Teams Name Effective Dates (start - stop) Status Members No Information
--- NOTE | ~2025-06-20 | XR_ITS ---
XR hand RT min 3V, XR wrist RT min 3V 06/20/2025 15:29 Indication: Right hand and wrist pain. Carpal tunnel syndrome. Procedure: 3 views right hand and 4 views right wrist Comparison: 03/28/2024 Findings: There is mild polyarticular osteoarthritis of the wrist and hand. Osteopenia. Side plate and screws transfixing the distal radius. There is a chronic ulnar styloid avulsion fracture. Degenerative changes most advanced at the triscaphe and first carpal metacarpal joints. No acute fracture or traumatic malalignment. Orthopedic hardware intact. 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 Reviewed, dictated and finalized at location O. 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
--- NOTE | ~2025-06-20 | XR_ITS ---
EXAMINATION: XR hand LT min 3V DATE: 06/20/2025 15:29 INDICATION: Pain TECHNIQUE: 3 images of the left hand were obtained. COMPARISON: None. FINDINGS: Bones appear osteopenic. Old avulsion fracture of the ulnar styloid process. No acute fracture. No dislocation. Severe joint space narrowing in the first carpometacarpal joint with mild osteophytosis. Mild joint space narrowing in the MCP, PIP and DIP joints of all 5 digits. Soft tissue swelling about the left hand. IMPRESSION: 1. No acute fracture. 2. Severe joint space narrowing in the first carpometacarpal joint with mild osteophytosis. If symptoms persist or worsen, consider a short-term follow-up study or additional imaging for further assessment. Reviewed, dictated and finalized at location Q. IMPRESSION: 1. No acute fracture. 2. Severe joint space narrowing in the first carpometacarpal joint with mild os teophytosis. If symptoms persist or worsen, consider a short-term follow-up study or additio nal imaging for further assessment.
--- OUTSIDE RECORDS SUMMARY | 2025-06-20 15:18 | XMS_ITS | Clinical Summary ---
Author Organization [facility] Address [address] [facility] [address] [place] [address] Phone Care Team Providers Care Mechanical Assembly Name Role Phone Sean Arvizu MD Unavailable Ari Wise MD Primary Care Provider [phone] Allergies Active Allergy Reactions Criticality Noted Date [...] 10:06 AM CDT): Small papule on left presybeterian. Recommended warm compresses b.i.d. 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
== END 2025-06-20 15:10 | disposition home or self-care (01) ==
PROVIDERS: PCP Family Medicine; Visit Provider Plastic Surgery
DX: G56.03 Carpal tunnel syndrome, bilateral upper limbs (principal); M25.742 Osteophyte, left hand; M19.031 Primary osteoarthritis, right wrist
CPT/HCPCS: 73110; 73130

== ENCOUNTER 2025-07-11 10:16 | Outpatient (CLI) | payer MEDICARE, SELFPAY ==
--- OUTSIDE RECORDS SUMMARY | 2024-04-01 05:15 | XMS_ITS ---
Author Organization [facility] Address [address] [place] [address] [place] [address] Care Team Providers Care Town Administrator Name Role Phone MAHAMED LEMON, VICKI Primary Care Provider Freddy Forte Unavailable [phone] ALLERGIES Allergen (clinical drug ingredient) Drug/Non Drug Allergy documented on EMR Reaction Allergy Type Onset Date Status lisinopril Lisinopril cough Drug Allergy Activ e metformin Metformin confusion Drug Allergy Active REASON FOR VISIT Right Shoulder Pain, Right Upper Extremity Pain MEDICATIONS Medication SIG (Take, Route, Frequency, Duration) Notes Start Date End Date Status Sertraline HCl 100 MG 1 tablet Orally On ce a day for 30 day(s) Active SITagliptin Phosphate 100 MG 1 tablet Orally Once a day for 30 day(s) Active Atorvastatin Calcium 10 MG 1 tablet Oral ly Once a day for 30 day(s) Active Omeprazole 20 MG 1 capsule 30 minutes before morning meal Orally Once a day for 30 day(s) Active Losartan Potassium-HCTZ 100-25 MG 1 tablet Orally Once a day for 30 day(s) Active Advil 200 MG 4 capsules Orally qhs Active Medrol 4 MG as directed Orally Active Albuterol Sulfate 108 (90 Base) MCG/ACT 1 puff as needed Inhalation every 4 hrs Active Ozempic (0.25 or 0.5 MG/DOSE) 2 MG/3ML as directed Subcutaneous Active Mometasone Furoate 0.1 % 1 application E xternally Once a day Active VITAL SIGNS Blood pressure systolic 133 mm Hg 04/01/20 24 Blood pressure diastolic 87 mm Hg 024 Heart Rate 91 /min 04/01/2024 Respiratory Rate 16 /min 04/01/2024 Height 61 in 04/01/2024 Weight 213 lbs 04/01/2024 BMI 40.24 kg/m2 04/01/2024 Discharged home per ambulato ry. No acute distress noted. Encounters Encounter Location Date Provider Diagnosis [facility] [address] [place] [address] 04/01/2024 Freddy Akers Primary osteoarthritis, right shoulder M19.011 ASSESSMENTS Encounter Date Diagnosis Assessment Notes Treatment Notes Treatment Clinical Notes Section Notes 04/01/2024 Primary osteoarthritis, right shoulder (ICD-10 - M19.011) PLAN OF TREATMENT No Information Procedure Notes * Category Sub-Category Detail Notes Shoulder Joint Injection Under Fluoroscopy Locat ion: Right Anesthesia: Local without IV sed ation Operative Technique: After the risks, be nefits, alternative treatments and potential complications related to the procedure were discussed and written and informed consent was obtained, the patient was placed in the supine position on the fluoroscopy table. Standard ASA monitors were applied. The anterior surface of the right shoulder was prepped and draped in the usual sterile fashion with chlorhexidine 2%/IPA 70%. The subacromial space of the selected shoulder was identified under live x-ray guidance. A 25 gauge 1.5 inch needle was inserted in a gun barrel fashion under fluoroscopic guidance. The needle tip was placed into the subacromial space. The subcutaneous structures were anesthetized with 3 mL of 1% Preservative-Free lidocaine during needle placement. A solution of dexamethasone 10 mg (10 mg per mL) plus 2 mL of 0.25% Preservative-Free bupivacaine was mixed and after negative aspiration 3 mL of this solution was slowly injected into the joint. The needle was removed, the skin was cleaned and a band-aid was placed over the puncture site. The patient tolerated the procedure well, was able to ambulate without difficulty and was monitored for 20 minutes. The patient remained hemodynamically and neurologically stable. No apparent complications were observed. Post-operative instructions were reviewed with the patient. The patient was then discharged home in good condition with a lead driver. X-ray time: 2 seconds Progress Notes * Examination Category Sub-Category Detail Notes Category Not es Examination/ Pre-Anesthesia Assessment General: The patient is alert and oriented X 3 in moderate distress secondary to pain HEENT: Normocephalic, atrau matic. PERRL. The oropharynx is clear Neck: There is limited ran ge of motion of the cervical spine to 60 degrees with extension and lateral rotation bilaterally. There is tenderness to palpation over the bilateral C3-4 through C7-T1 facet joints. Extension and lateral rotation of the cervical spine reproduces the patients typical axial neck pain. The axial loading test is positive. There is diffuse tenderness to palpation over the bilateral cervical paraspinal muscles and significant muscle spasm throughout. There are palpable myofascial trigger points within the body of the trapezius muscles bilaterally Heart: Regular rate and rhy thm Chest: Clear to auscultatio n bilaterally Abdomen: Soft and benign with normal bowel sounds throughout Musculoskeletal and Extremities: There i s tenderness to palpation about the right shoulder with positive right shoulder impingement upon 90 degrees of abduction Neurological: Spurling sign is pos itive on the right. There are no focal strength deficits in the bilateral upper and lower extremities Skin: Clean, dry and intac t Psychiatric: Mood and affect are normal History and Physical Notes * HPI (History of Present Illness) Category Sub-Category Detail Notes Category Not es Pain Management Radiographic Imaging C3 on C4 an d C4 on C5. There is DDD with moderate to severe disc space narrowing at C5-6 and C6-7. There is bilateral facet and uncovertebral hypertrophy from C3-4 through C6-7. At C5-6 there is moderate to severe right-sided foraminal stenosis secondary to uncovertebral hypertrophy. An x-ray of the right shoulder done on 11/18/22 demonstrates moderate before meals joint degenerative changes with moderate to severe glenohumeral joint DJD. Assessment and Follow-up: Follow-up Plan documedaniel amari:: Yes MIPS Quality 2020: MIPS Documented:: Compliant
--- OUTSIDE RECORDS SUMMARY | 2024-04-26 06:15 | XMS_ITS ---
Author Organization [facility] Address [address] [place] [address] [place] [address] Care Team Providers Care Associate Material Handler Name Role Phone MAHAMED LEMON, VICKI Primary Care Provider Freddy Forte Unavailable [phone] ALLERGIES Allergen (clinical drug ingredient) Drug/Non Drug Allergy documented on EMR Reaction Allergy Type Onset Date Status lisinopril Lisinopril cough Drug Allergy Activ e metformin Metformin confusion Drug Allergy Active REASON FOR VISIT Follow Up, Right Shoulder Pain MEDICATIONS Medication SIG (Take, Route, Frequency, Duration) Notes Start Date End Date Status Omeprazole 20 MG 1 capsule 30 minutes before morning meal Orally Once a day for 30 day(s) Active Atorvastatin Calcium 10 MG 1 tablet Oral ly Once a day for 30 day(s) Active Sertraline HCl 100 MG 1 tablet Orally On ce a day for 30 day(s) Active Losartan Potassium-HCTZ 100-25 MG 1 tablet Orally Once a day for 30 day(s) Active Mometasone Furoate 0.1 % 1 application E xternally Once a day Active Ozempic (0.25 or 0.5 MG/DOSE) 2 MG/3ML as directed Subcutaneous Active Advil 200 MG 4 capsules Orally qhs Active SITagliptin Phosphate 100 MG 1 tablet Orally Once a day for 30 day(s) Active Albuterol Sulfate 108 (90 Base) MCG/ACT 1 puff as needed Inhalation every 4 hrs Active Medrol 4 MG as directed Orally Active VITAL SIGNS Blood pressure systolic 124 mm Hg 04/26/20 24 Blood pressure diastolic 83 mm Hg 024 Heart Rate 79 /min 04/26/2024 Respiratory Rate 16 /min 04/26/2024 Height 61 in 04/26/2024 Weight 213 lbs 04/26/2024 BMI 40.24 kg/m2 04/26/2024 Encounters Encounter Location Date Provider Diagnosis [facility] [address] [facility] [place] [address] 04/26/2024 Freddy Akers Radiculopathy, cervical region M54.12 ; Primary osteoarthritis, right shoulder M19.011 ; Spondylosis without myelopathy or radiculopathy, cervical region M47.812 ; Radiculopathy, cervicothoracic region M54.13 ; Spinal stenosis, cervical region M48.02 ; Osseous stenosis of neural canal of cervical region M99.31 ; Pain in right shoulder M25.511 ; Chronic pain syndrome G89.4 ; intermediate project manager (current) use of anticoagulants Z79.01 and shelter (current) use of non-steroidal anti-inflammatories (NSAID) Z79.1 ASSESSMENTS Encounter Date Diagnosis Assessment Notes Treatment Notes Treatment Clinical Notes Section Notes 04/26/2024 Radiculopathy, cervical region (ICD-10 - M54.12) 04/26/2024 Primary osteoarthritis, right shoulder (ICD-10 - M19.011) Schedule a right shoulder joint steroid injection. The risks of this procedure including pain, bleeding, infection, nerve damage, insomnia, hyperglycemia, hair loss, muscle atrophy, skin depigmentation, weight gain, fluid retention, adrenal suppression, immunosuppression , osteoporosis resulting in fractures, avascular necrosis of the hip, cataracts, bleeding gastric ulcer, worsening pain and failure to relieve pain were discussed and the patient is agreeable to proceeding at this time. 04/26/2024 Spondylosis without myelopathy or radiculopathy, cervical region (ICD-10 - M47.812) 04/26/2024 Radiculopathy, cervicothoracic region (ICD-10 - M54.13) 04/26/2024 Spinal stenosis, cervical region (ICD-10 - M48.02) 04/26/2024 Osseous stenosis of neural canal of cervical region (ICD-10 - M99.31) 04/26/2024 Pain in right shoulder (ICD-10 - M25.511) 04/26/2024 Chronic pain syndrome (ICD-10 - G89.4) 04/26/2024 intermediate project manager (current) use of anticoagulants (ICD-10 - Z79.01) 04/26/2024 shelter (current) use of non-steroidal anti-inflammatories (NSAID) (ICD-10 - Z79.1) 04/26/2024 Other The above-named patient was evaluated in conjunction with Dr. Akers. I have discussed and reviewed all of the pertinent history, physical examination findings and diagnostic imaging results with him. As a result of our discussion, Dr. Akers has determined the above assessment and directed the treatment plan. This note was dictated using voice recognition software and therefore inadvertent errors may have occurred. This note was dictated by EVONNE Quigley PLAN OF TREATMENT Treatment Notes Assessment Notes Primary osteoarthritis, right shoulder S chedule a right shoulder joint steroid injection. The risks of this procedure including pain, bleeding, infection, nerve damage, insomnia, hyperglycemia, hair loss, muscle atrophy, skin depigmentation, weight gain, fluid retention, adrenal suppression, immunosuppression, osteoporosis resulting in fractures, avascular necrosis of the hip, cataracts, bleeding gastric ulcer, worsening pain and failure to relieve pain were discussed and the patient is agreeable to proceeding at this time. Other The above-named zoe ent was evaluated in conjunction with Dr. Akers. I have discussed and reviewed all of the pertinent history, physical examination findings and diagnostic imaging results with him. As a result of our discussion, Dr. Akers has determined the above assessment and directed the treatment plan. This note was dictated using voice recognition software and therefore inadvertent errors may have occurred. This note was dictated by EVONNE Quigley Next Appt Details Follow Up: right shoulder prince int steroid injection, Reason: Progress Notes * Examination Category Sub-Category Detail [...] joint DJD. Assessment and Follow-up: Follow-up Plan docsarah amari:: Yes MIPS Quality 2020: MIPS Documented:: Compliant
--- OUTSIDE RECORDS SUMMARY | 2024-08-02 02:30 | XMS_ITS ---
Author Organization [facility] Address [address] [place] [address] [place] [address] Care Team Providers Care Blending Plant Operator Name Role Phone MAHAMED LEMON, VICKI Primary Care Provider Freddy Forte Unavailable [phone] ALLERGIES Allergen (clinical drug ingredient) Drug/Non Drug Allergy documented on EMR Reaction Allergy Type Onset Date Status lisinopril Lisinopril cough Drug Allergy Activ e metformin Metformin confusion Drug Allergy Active REASON FOR VISIT Right Shoulder Pain, Right Upper Extremity Pain MEDICATIONS Medication SIG (Take, Route, Frequency, Duration) Notes Start Date End Date Status Losartan Potassium-HCTZ 100-25 MG 1 tablet Orally Once a day for 30 day(s) Active Mometasone Furoate 0.1 % 1 application E xternally Once a day Active Albuterol Sulfate 108 (90 Base) MCG/ACT 1 puff as needed Inhalation every 4 hrs Active Medrol 4 MG as directed Orally Active Ozempic (0.25 or 0.5 MG/DOSE) 2 MG/3ML as directed Subcutaneous Active Sertraline HCl 100 MG 1 tablet Orally On ce a day for 30 day(s) Active Omeprazole 20 MG 1 capsule 30 minutes before morning meal Orally Once a day for 30 day(s) Active Atorvastatin Calcium 10 MG 1 tablet Oral ly Once a day for 30 day(s) Active Advil 200 MG 4 capsules Orally qhs Active SITagliptin Phosphate 100 MG 1 tablet Orally Once a day for 30 day(s) Active VITAL SIGNS Blood pressure systolic 118 mm Hg 08/02/20 24 Blood pressure diastolic 82 mm Hg 024 Heart Rate 84 /min 08/02/2024 Respiratory Rate 16 /min 08/02/2024 Height 61 in 08/02/2024 Weight 213 lbs 08/02/2024 BMI 40.24 kg/m2 08/02/2024 Encounters Encounter Location Date Provider Diagnosis [facility] [address] [facility] [place] [address] 08/02/2024 Freddy Akers Primary osteoarthritis, right shoulder M19.011 ASSESSMENTS Encounter Date Diagnosis Assessment Notes Treatment Notes Treatment Clinical Notes Section Notes 08/02/2024 Primary osteoarthritis, right shoulder (ICD-10 - M19.011) PLAN OF TREATMENT Next Appt Details Follow Up: 2 Weeks, Reason: Procedure Notes * Category Sub-Category Detail Notes [...] space. The subcutaneous structures were anesthetized with 2 mL of 1% Preservative-Free lidocaine during needle placement. A solution of 10 mg of Preservative-Free Dexamethasone (10 mg/mL), plus 2 mL of 0.25% Preservative-Free bupivacaine was mixed and after negative aspiration 3 mL of this solution was slowly injected into the joint. The needle was removed, the skin was cleaned and a band-aid was placed over the puncture site. The patient tolerated the procedure well, was able to ambulate without difficulty and was monitored for 20 minutes. Patient reports a 90% reduction in typical pain immediately postprocedure. The patient remained hemodynamically and neurologically stable. No apparent complications were observed. Post-operative instructions were reviewed with the patient. The patient was then discharged home in good condition with a waste collection driver. X-ray time: 5 seconds Progress Notes * Examination Category Sub-Category [...] joint DJD. Assessment and Follow-up: Follow-up Plan documen amari:: Yes [facility] Quality 2020: MIPS Documented:: Compliant
--- OUTSIDE RECORDS SUMMARY | 2024-08-19 03:00 | XMS_ITS ---
Author Organization [facility] Address [address] [place] [address] Care Team Providers Care Nail Cutter Name Role Phone MAHAMED LEMON, VICKI Primary Care Provider Freddy Forte Unavailable [phone] ALLERGIES Allergen (clinical drug ingredient) Drug/Non Drug Allergy documented on EMR Reaction Allergy Type Onset Date Status lisinopril Lisinopril cough Drug Allergy Activ e metformin Metformin confusion Drug Allergy Active REASON FOR VISIT FOLLOW UP MEDICATIONS Medication SIG (Take, Route, Frequency, Duration) [...] MG/DOSE) 2 MG/3ML as directed Subcutaneous Active Omeprazole 20 MG 1 capsule 30 minutes before morning meal Orally Once a day for 30 day(s) Active Atorvastatin Calcium 10 MG 1 tablet Oral ly Once a day for 30 day(s) Active Advil 200 MG 4 capsules Orally qhs Active SITagliptin Phosphate 100 MG 1 tablet Orally Once a day for 30 day(s) Active Encounters Encounter Location Date Provider Diagnosis [facility] [address] [facility] [place] [place] [address] 08/19/2024 Freddy Akers Radiculopathy, cervical region M54.12 ; Primary osteoarthritis, right shoulder M19.011 ; Spondylosis without myelopathy or radiculopathy, cervical region M47.812 ; Radiculopathy, cervicothoracic region M54.13 ; Spinal stenosis, cervical region M48.02 ; Osseous stenosis of neural canal of cervical region M99.31 ; Pain in right shoulder M25.511 ; Chronic pain syndrome G89.4 ; termite renewal inspector (current) use of anticoagulants Z79.01 and halfway (current) use of non-steroidal anti-inflammatories (NSAID) Z79.1 ASSESSMENTS Encounter Date Diagnosis Assessment Notes Treatment Notes Treatment Clinical Notes Section Notes 08/19/2024 Radiculopathy, cervical region (ICD-10 - M54.12) 08/19/2024 Primary osteoarthritis, right shoulder (ICD-10 - M19.011) 08/19/2024 Spondylosis without myelopathy or radiculopathy, cervical region (ICD-10 - M47.812) 08/19/2024 Radiculopathy, cervicothoracic region (ICD-10 - M54.13) 08/19/2024 Spinal stenosis, cervical region (ICD-10 - M48.02) 08/19/2024 Osseous stenosis of neural canal of cervical region (ICD-10 - M99.31) 08/19/2024 Pain in right shoulder (ICD-10 - M25.511) 08/19/2024 Chronic pain syndrome (ICD-10 - G89.4) 08/19/2024 halfway (current) use of anticoagulants (ICD-10 - Z79.01) 08/19/2024 termite renewal inspector (current) use of non-steroidal anti-inflammatories (NSAID) (ICD-10 - Z79.1) PLAN OF TREATMENT No Information Progress Notes * Examination Category Sub-Category Detail [...]
--- OUTSIDE RECORDS SUMMARY | 2025-05-02 08:30 | XMS_ITS ---
Author Organization [facility] Address [address] [facility] [place] [address] Care Team Providers Care Glass Breaker Name Role Phone VICKI IRBY MD Primary Care Provider Freddy Forte Unavailable [phone] REASON FOR VISIT FOLLOW UP Encounters Encounter Location Date Provider Diagnosis [facility] [address] [facility] [place] [address] 05/02/2025 Freddy Akers PLAN OF TREATMENT No Information
--- NOTE | 2025-07-11 10:29 | ECG_ITS ---
Test Date: 2025-07-11 10:50:33 Measurements Intervals [place] Rate: 80 P: 136 DE: 138 QRS: 132 QRSD: 85 T: 144 QT: 379 QTc: 440 Interpretive Statements SINUS RHYTHM ARM LEADS REVERSED [INVERTED P AND QRS IN I] LOW VOLTAGE ABNORMAL ECG No previous ECG available for comparison Electronically Signed On 07-11-2025 12:10:13 CDT by Du Morales M.D.
[2025-07-11 10:51] LABS: Anion Gap 9 mmol/L (4-12); Blood Urea Nitrogen 22 mg/dL (7-17); Calcium 9.2 mg/dL (8.4-10.2); Carbon Dioxide 27 mmol/L (22-30); Chloride 100 mmol/L (98-107); Estimated Glomerular Filt Rate > 60; Glucose 163 mg/dL (65-110); Potassium 4.1 mmol/L (3.4-5.0); Sodium 136 mmol/L (137-145)
--- OUTSIDE RECORDS SUMMARY | 2025-07-11 11:57 | XMS_ITS | Patient Health Record ---
Author Organization [facility] Address [address] [place] [address] [place] [address] Care Team Providers Care Beater Tender Name Role Phone VICKI IRBY MD Primary Care Provider Freddy Forte Unavailable [phone] ALLERGIES Allergen (clinical drug ingredient) Drug/Non Drug [...] drug abuse. 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 The patient is . She denies tobacco, alcohol, or illicit drug abuse. 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 The patient is . She denies tobacco, alcohol, or illicit drug abuse. 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 The patient is . She denies tobacco, alcohol, or illicit drug abuse. 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 The patient is . She denies tobacco, alcohol, or illicit drug abuse. 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 The patient is . She denies tobacco, alcohol, or illicit drug abuse. 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 The patient is . She denies tobacco, alcohol, or illicit drug abuse. 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 The patient is . She denies tobacco, alcohol, or illicit drug abuse. 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 The patient is . She denies tobacco, alcohol, or illicit drug abuse. 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 The patient is . She denies tobacco, alcohol, or illicit drug abuse. 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 The patient is . She denies tobacco, alcohol, or illicit drug abuse. 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 The patient is . She denies tobacco, alcohol, or illicit drug abuse. 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 The patient is . She denies tobacco, alcohol, or illicit drug abuse. 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 The patient is . She denies tobacco, alcohol, or illicit drug abuse. 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 The patient is . She denies tobacco, alcohol, or illicit drug abuse. 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 The patient is . She denies tobacco, alcohol, or illicit drug abuse. 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 The patient is . She is a former smoker. She denies tobacco, alcohol, or illicit drug abuse. 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 PROBLEMS Problem Type ICD Code Onset Dates Problem Status W/U Status Risk SNOMED Code Notes Problem Chronic pain syndrome (G89.4) Active confirmed Chronic bella n syndrome (776544046) Problem Primary osteoarthritis, right shoulder (M19.011) Active confirmed Localized, primary osteoarthritis of the shoulder region (098066816) Problem Pain in right shoulder (M25.511) Active confirmed Pain of r ight shoulder region (finding) (0064595620) Problem Spondylosis without myelopathy or radiculopathy, cervical region (M47.812) Active confirmed Cervical spondylosis without myelopathy (830492119) Problem Spondylosis without myelopathy or radiculopathy, cervicothoracic region (M47.813) Active confirmed Cervical spondylosis without myelopathy (110155539) Problem Spinal stenosis, cervical region (M48.02) Active confirmed Spinal stenosis in cervical region (46281458) Problem Radiculopathy, cervical region (M54.12) Active confirmed Cervical radiculopathy (13042907) Problem Radiculopathy, cervicothoracic region (M54.13) Active confirmed Cervical radiculopathy (32100301) Problem Osseous stenosis of neural canal of cervical region (M99.31) Active confirmed Spinal stenosis in cervical region (37941095) Problem meterman (current) use of anticoagulants (Z79.01) Active confirmed Long-term curre nt use of anticoagulant (731917397) Problem Degenerative cervical spinal stenosis (M48.02) Active confirmed Degenerati ve cervical spinal stenosis (813815744) VITAL SIGNS Heart Rate 84 /min 08/02/2024 Respiratory Rate 16 /min 08/02/2024 Blood pressure diastolic 82 mm Hg 08/02/2024 Height 61 in 08/02/2024 Blood pressure systolic 118 mm Hg 08/02/2024 Weight 213 lbs 08/02/2024 BMI 40.24 kg/m2 08/02/2024 Encounters Encounter Location Date Provider Diagnosis [facility] [address] [place] [address] 08/02/2024 Freddy Akers Primary osteoarthritis, right shoulder M19.011 [facility] [address] [place] [address] 08/19/2024 Freddy Akers Radiculopathy, cervical region M54.12 ; Primary osteoarthritis, right shoulder M19.011 ; Spondylosis without myelopathy or radiculopathy, cervical region M47.812 ; Radiculopathy, cervicothoracic region M54.13 ; Spinal stenosis, cervical region M48.02 ; Osseous stenosis of neural canal of cervical region M99.31 ; Pain in right shoulder M25.511 ; Chronic pain syndrome G89.4 ; half-way (current) use of anticoagulants Z79.01 and half-way (current) use of non-steroidal anti-inflammatories (NSAID) Z79.1 [facility] [address] [place] [address] [place] [address] 05/02/2025 Freddy Akers ASSESSMENTS Encounter Date Diagnosis [...] Chronic pain syndrome (ICD-10 - G89.4) 08/19/2024 meterman (current) use of anticoagulants (ICD-10 - Z79.01) 08/19/2024 half-way (current) use of non-steroidal anti-inflammatories (NSAID) (ICD-10 - Z79.1) PLAN OF TREATMENT No Information Insurance Providers Payer Name Payer Address Payer Phone Subscriber Number Group Number Insured Name Patient Relationship to Insured Coverage Start Date Coverage End Date Medicare [place] [address] [address] [place] [address] [id number] WICHO BLUNT Self - patient is the insured A[employer] MEDICARE ADVANTAGE [address] [place] [address] [id number] WICHO BLUNT Self - patient is the [...]
--- OUTSIDE RECORDS SUMMARY | 2025-07-11 11:57 | XMS_ITS | Clinical Summary ---
Author Organization [facility] Address [address] [facility] [address] [place] [address] Phone Care Team Providers Care Bladder Trimmer Name Role Phone Sean Arvizu MD Unavailable Ari Wise MD Primary Care Provider [phone] Allergies Active Allergy Reactions Criticality Noted Date [...] 10:06 AM CDT): Small papule on left mormonism. Recommended warm compresses b.i.d. 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
== END 2025-07-11 10:17 | disposition home or self-care (01) ==
PROVIDERS: PCP Family Medicine; Visit Provider Anesthesiology
DX: E11.65 Type 2 diabetes mellitus with hyperglycemia (principal); Z01.818 Encounter for other preprocedural examination; E78.2 Mixed hyperlipidemia; I10 Essential (primary) hypertension
CPT/HCPCS: 36415; 80048; 93005

== ENCOUNTER 2025-07-20 06:56 | Day surgery (SDC) | payer MEDICARE, SELFPAY ==
[2025-07-07 09:25] VITALS: BMI 33.8
--- NOTE | 2025-07-20 06:59 | WPDHPUPDATE1 ---
History and Physical Update Update Date/Time: 07/20/25 06:59 Patient seen and examined in pre-operative holding area. No interval change in medical history or symptoms. Patient recalls previous discussion of benefits and alternatives to procedure. Continues to desire to proceed with left endoscopic possible open carpal tunnel release and left cubital tunnel release. Reviewed procedure, post-op expectations and risks including but not limited to bleeding, infection, injury to tendon/nerve/vessel, decreased hand function, stiffness, RSD, no change or worsening of symptoms. I discussed the possible use of assistants and their participation in the case. Patient stated understanding and signed the consent form wishing to proceed.
--- NOTE | 2025-07-20 07:00 | P.OP_ITS ---
Procedure Note - Detailed Date of Procedure 07/20/25 Pre-op Diagnosis Left Carpal and Cubital Tunnel Syndrome Post-op Diagnosis Same Procedure Performed left ectr and CuTR Surgeon Shad Bashir MD Human Resource Management Instructor Arturo Benito PA-C Anesthesia MAC Description of Procedure INFORMED CONSENT: The patient was seen and examined and marked in the pre-op area.? The patient signed the consent form. PROCEDURE IN DETAIL:The patient taken back to OR on the stretcher in supine position. Time out performed with anesthesia, surgeon and staff agreeing on patient's name site and surgery to be performed SCDs were placed on the lower extremities and inflated. A tourniquet was placed on {left} upper extremity and antibiotics given IV After anesthesia administered sedation I injected {10}cc 1%lido with epi and 0.5% marcaine plain at the operative sites The?{left upper extremity}?was prepped and draped in sterile fashion the??{left upper extremity} was? exsanguinated with Esmarch bandage and tourniquet inflated to 250mmHg I made a transverse incision in the {left} volar distal wrist crease through skin and dermis with 15 blade scalpel.? Littler scissors spread down to antebrachial fascia. A small incision was made in antebrachial fascia allowing access to Carpal tunnel. I proceeded with sequential dilation staying in line with the ring finger and hugging the hook of the hamate.? I then used the synovial elevator to free any adhesions from the underside of the transverse carpal ligament. Next I was able to insert the Microaire endoscopic carpal tunnel device with direct visualization of the transverse fibers on the monitor and proceeded with complete segmental retrograde release of the ligament in its entirety.? I irrigated with normal saline and closed with 4-0 monocryl for dermis and subcuticular closure. I next proceeded with making a longitudinal incision between two heads for flexor carpi ulnaris at end of {left} cubital tunnel with 15 blade scalpel.? Littler scissors were used to spread down to FCU fascia.? An incision was made in FCU fascia and ulnar nerve identified exiting cubital tunnel.? I proceeded with complete retrograde release of the cubital tunnel including 7cm proximal for the intermuscular septum.? The nerve appeared atrophic and had a 1cm area of sclerosis but with visible vaso nervorum.? There was no subluxation on full elbow range of motion. ? I irrigated with normal saline and closure with 3-0 vicryl and 4-0 monocryl. The incisions were covered with Dermabond then 4x4s, faina, and a posterior elbow and volar wrist splint for patient safety, security and comfort and secured with prachi bandages after the tourniquet was let down noting the hand was warm and well perfused.? Patient awaken from anesthesia and transferred to recovery in stable condition Complications - none EBL- 1cc Disposition - home in stable condition Arturo Benito PA-C was essential for positioning, retraction, closure and dressing placement [facility] [place] - Charge Forward: Surgery Billing ([id number] same for arturo adding )
--- NOTE | 2025-07-20 08:09 | P.PNAN_ITS ---
Anes - Initial Pre Proc Eval Procedure: Operation Date: 07/20/25 09:15 Proposed Procedures p Left Endoscopic Carpal Tunnel Release, Possible Open Carpal Tunnel Release - Shad Bashir MD s Left Cubital Tunnel Release - Shad Bashir MD Date/Time: 07/20/25 08:09 Surgeon: Shad Bashir MD Pre Op Diagnosis: Left Carpal and Cubital Tunnel Syndrome Patient Data Age: 74 Gender: F Height: 1.55 m Weight: 81.2 kg Allergies Allergy/AdvReac Type Severity Reaction Status Date / Time metformin Allergy Unknown Confusion, Verified 07/20/25 07:38 anxiety Home Medications ?Medication ?Instructions ?Recorded ?Confirmed ?Type albuterol sulfate 90 mcg/actuation 2 puff inhalation Q 4H PRN 12/17/21 07/20/25 Rx aerosol inhaler (ProAir HFA) shortness of breath or wh eezing #8.5 grams losartan 100 1 tablet PO DAILY #90 tabs 1 11/12/23 07/20/25 Rx mg-hydrochlorothiazide 12.5 mg tablet sertraline 100 mg tablet 100 mg PO DAILY #90 tabs 08/1907/20/25 Rx semaglutide 0.25 mg or 0.5 mg (2 0.5 mg (0.736 mL) sub cut WEEKLY #3 01/04/25 07/20/25 Rx mg/3 mL) subcutaneous pen injector mL (Ozempic) atorvastatin 10 mg tablet 10 mg PO DAILY #90 tabs /07/2007/20/25 Rx omeprazole 20 mg capsule,delayed 20 mg PO DAILY #90 ca ps 05/23/25 07/20/25 Rx release blood sugar diagnostic (True #100 ea 05/24/25 Rx Metrix Glucose Test Strip) acetaminophen 500 mg capsule 500 mg PO Q4-6H PRN pain 07/07/25 07/20/25 History Patient hx anesthesia problems: none Family hx anesthesia problems: none Results Review: All pre-operative results and documents have been reviewed as part of the pre- operative evaluation. [facility]LY [facility] Past Medical History Medical History (Updated 06/20/25 @ 14:33 by Shad Bashir MD) Ulnar neuropathy at elbow of right upper extremity EMG and nerve conduction study 06/07/2025 with bilateral ulnar neuropathy at the elbow with no carpal tunnel syndrome. Ulnar neuropathy at elbow of left upper extremity Ulnar neuropathy on EMG 06/07/2025 BMI 33.0-33.9,adult Chronic neck pain Chronic pain of right hand Chronic pain of left hand DJD of right shoulder Right shoulder pain BMI 34.0-34.9,adult Hemorrhoid Nail fungus Colon cancer screening patient reports Cologuard screening negative around 2019. Cologuard screening was negative on 02/28/2024 with recheck in 3 years. At moderate risk for fall (~12/2023) patient tripped over branch in yd December, Obesity (BMI 30-39.9) Controlled diabetes mellitus with hyperglycemia Fasting glucose 266 with hemoglobin A1c 9.9 with urine microalbumin ratio of 12 on 01/14/2024. Fasting glucose 126, hemoglobin A1c 6.1, urine microal bumin ratio of 7 with GFR 91 on 03/23/2025. Arthritis of right shoulder region glenohumeral Diabetic peripheral neuropathy associated with type 2 diabetes mellitus Hyperlipidemia Asthma Allergies Diabetes Morbid obesity with BMI of 40.0-44.9, adult Eczema of both external ears Screening for diabetic retinopathy no diabetic retinopathy on dilated eye exam 11/26/2021.No retinopathy or macular degeneration on 01/07/2023. Carpal tunnel syndrome on both sides mild carpal tunnel syndrome on EMG and nerve conduction study 04/09/2021 with no evidence of cervical radiculitis Chronic pain in right shoulder Chronic right-sided thoracic back pain RUQ abdominal pain Fatty infiltration of liver (05/02/21) fatty changes of the liver noted on CT on 05/02/2021. GGT 20, AST 18, ALT 13 on 12/02/2021. AST 19, ALT 14 on 12/05/2022. AST 20, ALT 15 on 01/14/2024. Acute abdominal pain in right flank (~04/27/21) Mixed hyperlipidemia total cholesterol 247, triglycerides 279, HDL 50, LDL 151 on 12/02/2021. Total cholesterol 162, triglycerides 148, HDL 56, LDL 81 on 12/05/2022. Cholesterol 183, HDL 48, triglycerides 253, LDL 99 with ratio 3.8 on 01/14/2024. Cholesterol 156, triglycerides 129, HDL 53, LDL 80 with ratio of 2.9 on 03/23/2025. Vitamin B12 deficiency anemia B12 low at 336 with goal greater than 400 with hemoglobin 13.4 on 12/02/2021. Normal at 445 with hemoglobin 13.2 on 12/05/2022. Slightly low at 395 hemoglobin 13.8 on 01/14/2024. Level low at 328 with hemoglobin 13.3 on 03/23/2025. Chronic anxiety Chronic depression Body mass index [BMI] 38.0-38.9, adult (07/19/19) Essential (primary) hypertension GERD (gastroesophageal reflux disease) Mild intermittent occasional asthma without complication Type 2 diabetes mellitus without complication, without long-term current use of insulin glucose 172 with hemoglobin A1c 7.4, microalbumin ratio of 8 on 12/02/2021 Glucose 147 with hemoglobin A1c 7.4 and urine microalbumin ratio of 6 on 12/05/2022. Glucose 220 with hemoglobin A1c 8.5 on 07/03/2023. Vitamin D deficiency, unspecified vitamin-D normal at 58 on 12/02/2021 . Level normal at 49 on 03/23/2025. Surgical History Surgical History History of carpal tunnel surgery of right wrist History of removal of skin mole History of tonsillectomy History of hysterectomy Family History Family History Grandparent Family history of tuberculosis, Onset Age: 42 Acute myocardial infarction, Onset Age: 81 Family history of malignant neoplasm, Onset Age: 90 Sibling Patient's brother is in good health Patient's brother is Mother Family history of lung cancer, Onset Age: 95 Social History Social History Social History: caffeine use Smoking packs per day: 1 Smoking cigarettes per day: 20.0 Years smoked: 25 Smoking pack-years: 25.00 Smoking status: Former smoker Tobacco type: cigarettes Second hand tobacco smoke exposure: Yes Smoking end date: 10/26/84 Alcohol intake: never Substance use: never Substance use type: does not use Lack of Transportation: No Lack of Food: Never True Current Housing: I Have Housing Concerned About Future Housing: No Difficulty Paying Gas/Electric Bills: No Difficulty Paying for Meds: No Currently Unemployed: No Education: High School Diploma/GED Difficulty w/ Childcare or Family Care: No Living arrangements: with family Occupation/Education: retired Gender identity (if verbalized by the patient): Female Spiritual care concerns: No Anes - Eval Final PreProcedure Day of Procedure 07/20/25 08:09 Heart: regular rate and rhythm Lungs: clear to auscultation Airway: Mallampati scale class II Neurological: alert and oriented Last oral intake: >/= 8 hours ASA classification: III Anesthetic plan: proceed Anesthesia type and monitoring: monitored anesthesia care Results Review: All pre-operative results and documents have been reviewed as part of the pre- operative evaluation. Informed Consent: The patient's anesthetic plan and its attendant risks and benefits were discussed with the patient/family/POA. Questions were solicited and answers provided to the satisfaction of the patient/family/POA.
[2025-07-20] MEDS: LACTATED RINGERS 1,000 ML 30 ML IV CONT (08:10)
[2025-07-20] MEDS: ACETAMINOPHEN 500 MG TABLET 1000 MG PO (08:11)
[2025-07-20 08:15] VITALS: BP 124/84; PULSE 72; RESP 18; TEMP 36.3; O2SAT 100
[2025-07-20 08:17] VITALS: BMI 34.5
[2025-07-20] MEDS: ceFAZolin SODIUM 2 GM/20 ML SW SYRINGE IV PUSH (09:20)
[2025-07-20] MEDS: LIDO 1%/EPINEPHRINE 1:100,000 20 ML VIAL 10 ML INFILTRATE (09:34)
[2025-07-20] MEDS: BUPivacaine HCL 0.5% 10 ML AMP INFILTRATE (09:35)
[2025-07-20 09:48] VITALS: BP 108/60; PULSE 71; RESP 16; O2SAT 96
[2025-07-20 10:01] VITALS: BP 101/62; PULSE 62; RESP 16; O2SAT 100
[2025-07-20 10:17] VITALS: BP 116/68; PULSE 53; RESP 16; O2SAT 100
== END 2025-07-20 10:27 | disposition home or self-care (01) ==
PROVIDERS: PCP Family Medicine; Visit Provider Plastic Surgery
PROC: 01N54ZZ Release Median Nerve, Percutaneous Endoscopic Approach (ICD-10-PCS; CPT 29848; principal; 2025-07-20 09:15)
PROC: (CPT 64718; 2025-07-20 09:15)
DX: G56.02 Carpal tunnel syndrome, left upper limb (principal); G56.22 Lesion of ulnar nerve, left upper limb
CPT/HCPCS: 29848; 64718

== ENCOUNTER 2025-09-11 07:47 | Day surgery (SDC) | payer MEDICARE, SELFPAY ==
[2025-08-24 13:53] VITALS: BMI 34.1
--- NOTE | 2025-09-11 06:53 | WPDHPUPDATE1 ---
History and Physical Update Update Date/Time: 09/11/25 06:53 Patient seen and examined in pre-operative holding area. No interval change in medical history or symptoms. Patient recalls previous discussion of benefits and alternatives to procedure. Continues to desire to proceed with right open carpal tunnel release revision, right cubital tunnel release and bilateral basal joint steroid injections. Reviewed procedure, post-op expectations and risks including but not limited to bleeding, infection, injury to tendon/nerve/vessel, decreased hand function, stiffness, RSD, no change or worsening of symptoms, steroid complications. I discussed the possible use of assistants and their participation in the case. Patient stated understanding and signed the consent form wishing to proceed.
--- NOTE | 2025-09-11 06:53 | W.PM.PROC2 ---
Procedure Note - Detailed Date of Procedure 09/11/25 Pre-op Diagnosis right Carpal and Cubital Tunnel Syndrome abd b/l basal joint arthritis Post-op Diagnosis Same Procedure Performed right open CTR, rigth CuTR and b/l basal joint steroid injecitons Surgeon Shad Bashir MD Dog R[employer] Manager Arturo Benito PA-C Anesthesia MAC Description of Procedure INFORMED CONSENT: The patient was seen and examined and marked in the pre-op area.? The patient signed the consent form. PROCEDURE IN DETAIL:The patient taken back to OR on the stretcher in supine position. Time out performed with anesthesia, surgeon and staff agreeing on patient's name site and surgery to be performed SCDs were placed on the lower extremities and inflated. A tourniquet was placed on {right} upper extremity and antibiotics given IV After anesthesia administered sedation I injected {10}cc 1%lido with epi and 0.5% marcaine plain at the operative sites I injected 0.3cc 1%lidocaine plain and 0.7cc Betamethasone 6mg/ml injected into bilateral first cmc joints under sterile conditions. The?{right upper extremity}?was prepped and draped in sterile fashion the??{right upper extremity} was? exsanguinated with Esmarch bandage and tourniquet inflated to 250mmHg I proceeded with making a longitudinal incision in palm in line with the ring finger and patient's previous incision going obliquely across the volar wrist flexion crease creating a ulnarly based flap through skin and dermis with 15 blade scalpel. Littler scissors were used to spread through subcutaneous tissue proximally in the distal forearm down to antebrachial fascia. I made an incision in the antebrachial fascia and then identified the median nerve. I then proceeded with anterograde dissection and release of the scar tissue, residual transverse carpal ligament and tissue to release the carpal tunnel. The median nerve was protected throughout this procedure and appeared healthy with visible vaso nervorum notably around the forearm there was a discontinuous area of vaso nervorum likely from previous surgical dissection for previous distal radius fracture. I irrigated with normal saline and closed with 3-0 Vicryl suture and 4-0 chromic. I next proceeded with making a longitudinal incision between two heads for flexor carpi ulnaris at end of {right} cubital tunnel with 15 blade scalpel.? Littler scissors were used to spread down to FCU fascia.? An incision was made in FCU fascia and ulnar nerve identified exiting cubital tunnel.? I proceeded with complete retrograde release of the cubital tunnel including 7cm proximal for the intermuscular septum.? The nerve appeared healthy with visible vaso nervorum.? There was no subluxation on full elbow range of motion. ? I irrigated with normal saline and closure with 4-0 monocryl for dermis and subcuticular. The incision was covered with xeroform at the palm and dermabond at elbow then 4x4s, faina, and a posterior elbow and volar wrist splint was appliedfor patient safety, security and comfort and secured with prachi bandages after the tourniquet was let down noting the hand was warm and well perfused.? Patient awaken from anesthesia and transferred to recovery in stable condition Complications - none EBL- 1cc Disposition - home in stable condition Arturo Benito PA-C was essential for positioning, retraction, closure and dressing placement. [facility] [place] Billing Surgery - Charge Forward: Surgery Billing ([id number],-[id number],-[id number] and [id number] for arturo)
[2025-09-11 08:15] VITALS: BP 123/86; PULSE 76; RESP 16; TEMP 36.8; O2SAT 100
[2025-09-11] MEDS: ACETAMINOPHEN 500 MG TABLET 1000 MG PO (08:21)
[2025-09-11] MEDS: LACTATED RINGERS 1,000 ML 30 ML IV CONT (08:23)
--- NOTE | 2025-09-11 09:26 | P.PNAN_ITS ---
Anes - Initial Pre Proc Eval Procedure: Operation Date: 09/11/25 09:30 Proposed Procedures p Revision Right Open Carpal Tunnel Release - Shad Bashir MD s Right Cubital Tunnel Release - Shad Bashir MD s Bilateral Basal Joint Steroid Injection - Shad Bashir MD Date/Time: 09/11/25 09:26 Surgeon: Shad Bashir MD Pre Op Diagnosis: Bilateral Carpal and Cubital Tunnel Syndrome Patient Data Age: 74 Gender: F Height: 1.55 m Weight: 83.4 kg Last Vital Signs Temp 98.3 F 09/11/25 08:15 Pulse 76 09/11/25 08:15 Resp 16 09/11/25 08:15 BP 123/86 09/11/25 08:15 Pulse Ox 100 09/11/25 08:15 O2 Del Method Room Air 09/11/25 08:15 Allergies Allergy/AdvReac Type Severity Reaction Status Date / Time metformin Allergy Unknown Confusion, Verified 09/11/25 08:12 anxiety Home Medications ?Medication ?Instructions ?Recorded ?Confirmed ?Type albuterol sulfate 90 mcg/actuation 2 puff inhalation Q 4H PRN 12/17/21 09/11/25 Rx aerosol inhaler (ProAir HFA) shortness of breath or wh eezing #8.5 grams sertraline 100 mg tablet 100 mg PO DAILY #90 tabs 08/1909/11/25 Rx semaglutide 0.25 mg or 0.5 mg (2 0.5 mg (0.736 mL) sub cut WEEKLY #3 01/04/25 09/11/25 Rx mg/3 mL) subcutaneous pen injector mL (Ozempic) atorvastatin 10 mg tablet 10 mg PO DAILY #90 tabs 07/07/2009/11/25 Rx omeprazole 20 mg capsule,delayed 20 mg PO DAILY #90 ca ps 05/23/25 09/11/25 Rx release blood sugar diagnostic (True #100 ea 05/24/25 Rx Metrix Glucose Test Strip) acetaminophen 500 mg capsule 500 mg PO Q4-6H PRN pain 07/07/25 09/11/25 History losartan 100 1 tablet PO DAILY #90 tabs 1 10/28/24 09/11/25 Rx mg-hydrochlorothiazide 12.5 mg tablet Laboratory Tests 09/11/25 08:29 POC Capillary Glucose 115 H mg/dl (65-105) Patient hx anesthesia problems: none Family hx anesthesia problems: none Results Review: All pre-operative results and documents have been reviewed as part of the pre- operative evaluation. FORMERLY [facility], [facility] Past Medical History Medical History Ulnar neuropathy at elbow of right upper extremity EMG and nerve conduction study 06/07/2025 with bilateral ulnar neuropathy at the elbow with no carpal tunnel syndrome. Ulnar neuropathy at elbow of left upper extremity Ulnar neuropathy on EMG 06/07/2025 BMI 33.0-33.9,adult Chronic neck pain Chronic pain of right hand Chronic pain of left hand DJD of right shoulder Right shoulder pain BMI 34.0-34.9,adult Hemorrhoid Nail fungus Colon cancer screening patient reports Cologuard screening negative around 2019. Cologuard screening was negative on 02/28/2024 with recheck in 3 years. At moderate risk for fall (~12/2023) patient tripped over branch in yd December, Obesity (BMI 30-39.9) Controlled diabetes mellitus with hyperglycemia Fasting glucose 266 with hemoglobin A1c 9.9 with urine microalbumin ratio of 12 on 01/14/2024. Fasting glucose 126, hemoglobin A1c 6.1, urine microalbumin ratio of 7 with GFR 91 on 03/23/2025. Arthritis of right shoulder region glenohumeral Diabetic peripheral neuropathy associated with type 2 diabetes mellitus Hyperlipidemia Asthma Allergies Diabetes Morbid obesity with BMI of 40.0-44.9, adult Eczema of both external ears Screening for diabetic retinopathy no diabetic retinopathy on dilated eye exam 11/26/2021.No retinopathy or macular degeneration on 01/07/2023. Carpal tunnel syndrome on both sides mild carpal tunnel syndrome on EMG and nerve conduction study 04/09/2021 with no evidence of cervical radiculitis Chronic pain in right shoulder Chronic right-sided thoracic back pain RUQ abdominal pain Fatty infiltration of liver (05/02/21) fatty changes of the liver noted on CT on 05/02/2021. GGT 20, AST 18, ALT 13 on 12/02/2021. AST 19, ALT 14 on 12/05/2022. AST 20, ALT 15 on 01/14/2024. Acute abdominal pain in right flank (~04/27/21) Mixed hyperlipidemia total cholesterol 247, triglycerides 279, HDL 50, LDL 151 on 12/02/2021. Total cholesterol 162, triglycerides 148, HDL 56, LDL 81 on 12/05/2022. Cholesterol 183, HDL 48, triglycerides 253, LDL 99 with ratio 3.8 on 01/14/2024. Cholesterol 156, triglycerides 129, HDL 53, LDL 80 with ratio of 2.9 on 03/23/2025. Vitamin B12 deficiency anemia B12 low at 336 with goal greater than 400 with hemoglobin 13.4 on 12/02/2021. Normal at 445 with hemoglobin 13.2 on 12/05/2022. Slightly low at 395 hemoglobin 13.8 on 01/14/2024. Level low at 328 with hemoglobin 13.3 on 03/23/2025. Chronic anxiety Chronic depression Body mass index [BMI] 38.0-38.9, adult (07/19/19) Essential (primary) hypertension GERD (gastroesophageal reflux disease) Mild intermittent occasional asthma without complication Type 2 diabetes mellitus without complication, without long-term current use of insulin glucose 172 with hemoglobin A1c 7.4, microalbumin ratio of 8 on 12/02/2021 Glucose 147 with hemoglobin A1c 7.4 and urine microalbumin ratio of 6 on 12/05/2022. Glucose 220 with hemoglobin A1c 8.5 on 07/03/2023. Vitamin D deficiency, unspecified vitamin-D normal at 58 on 12/02/2021 . Level normal at 49 on 03/23/2025. Surgical History Surgical History History of carpal tunnel surgery of right wrist History of removal of skin mole History of tonsillectomy History of hysterectomy Family History Family History Grandparent Family history of tuberculosis, Onset Age: 42 Acute myocardial infarction, Onset Age: 81 Family history of malignant neoplasm, Onset Age: 90 Sibling Patient's brother is in good health Patient's brother is Mother Family history of lung cancer, Onset Age: 95 Social History Social History Social History: caffeine use Smoking packs per day: 1 Smoking cigarettes per day: 20.0 Years smoked: 25 Smoking pack-years: 25.00 Smoking status: Former smoker Tobacco type: cigarettes Second hand tobacco smoke exposure: No Smoking end date: 10/26/84 Alcohol intake: never Substance use: never Substance use type: does not use Lack of Transportation: No Lack of Food: Never True Current Housing: I Have Housing Concerned About Future Housing: No Difficulty Paying Gas/Electric Bills: No Difficulty Paying for Meds: No Currently Unemployed: No Education: High School Diploma/GED Difficulty w/ Childcare or Family Care: No Living arrangements: with family Occupation/Education: retired Gender identity (if verbalized by the patient): Female Spiritual care concerns: No Anes - Eval Final PreProcedure Day of Procedure 09/11/25 09:26 Heart: regular rate and rhythm Lungs: clear to auscultation Airway: Mallampati scale class II Neurological: alert and oriented Last oral intake: >/= 8 hours ASA classification: III Anesthetic plan: proceed Anesthesia type and monitoring: monitored anesthesia care Results Review: All pre-operative results and documents have been reviewed as part of the pre- operative evaluation. Informed Consent: The patient's anesthetic plan and its attendant risks and benefits were discussed with the patient/family/POA. Questions were solicited and answers provided to the satisfaction of the patient/family/POA.
[2025-09-11] MEDS: ceFAZolin SODIUM 2 GM/20 ML SW SYRINGE IV PUSH (09:30)
[2025-09-11] MEDS: BUPivacaine HCL 0.5% 10 ML AMP (09:52)
[2025-09-11] MEDS: LIDO 1%/EPINEPHRINE 1:100,000 20 ML VIAL (09:52)
[2025-09-11] MEDS: BETAMETHASONE SOD PHOS/ACETATE 30 MG/5 ML VIAL (09:53)
[2025-09-11 10:05] VITALS: BP 101/64; PULSE 66; RESP 15; O2SAT 96
[2025-09-11 10:24] VITALS: BP 104/54; PULSE 66; RESP 16; O2SAT 96
== END 2025-09-11 10:34 | disposition home or self-care (01) ==
LOC: ASC 07:54
PROVIDERS: PCP Family Medicine; Visit Provider Plastic Surgery
PROC: (CPT 64721; principal; 2025-09-11 09:30)
PROC: (CPT 64718; 2025-09-11 09:30)
PROC: 3E0233Z Introduction of Anti-inflammatory into Muscle, Percutaneous Approach (ICD-10-PCS; CPT 64718; 2025-09-11 09:30)
DX: G56.01 Carpal tunnel syndrome, right upper limb (principal); G56.21 Lesion of ulnar nerve, right upper limb; M18.0 Bilateral primary osteoarthritis of first carpometacarpal joints
CPT/HCPCS: 64718; 64721; 20600